=== PATIENT | female | born 1945 | race Caucasian/White ===

== ENCOUNTER → 2019-02-18 11:46 | Outpatient (CLI) | payer MEDICARE, OTHER, SELFPAY ==
--- NOTE | 2019-02-18 | DI.MG.S_ITS ---
BILATERAL DIGITAL SCREENING MAMMOGRAM 3D/2D WITH CAD: 02/18/2019 CLINICAL: Routine screening. Family history of breast cancer. Comparison is made to exams dated: 12/26/2017 mammogram, 11/10/2016 mammogram, 11/02/2015 mammogram, and 10/18/2012 mammogram - [facility]. There are scattered fibroglandular elements in both breasts. Current study was also evaluated with a Computer Aided Detection (CAD) system. No significant masses, calcifications, or other findings are seen in either breast. There has been no significant interval change. IMPRESSION: NEGATIVE There is no mammographic evidence of malignancy. A 1 year screening mammogram is recommended. This exam was interpreted at Station ID: [id number]. NOTE: For mammograms, a report in lay terms will be sent to the patient. Approximately 15% of breast malignancies will not be visualized mammographically. In the management of a palpable breast mass, a negative mammogram must not discourage biopsy of a clinically suspicious lesion. Electronically Signed By: Grayson garnett/cassandra:02/18/2019 12:55:17 letter sent: Normal Exam ACR BI-RADS Category 1: Negative [id number]
== END ==
PROVIDERS: Family Provider Family Medicine; PCP Family Medicine; Visit Provider Family Medicine
DX: Z12.31 Encounter for screening mammogram for malignant neoplasm of breast (principal); Z80.3 Family history of malignant neoplasm of breast
CPT/HCPCS: 77063; 77067

== ENCOUNTER → 2019-05-28 11:20 | Outpatient (CLI) | payer MEDICARE, OTHER, SELFPAY ==
--- NOTE | 2019-05-28 | DI.RAD.S_ITS ---
PROCEDURE: XR CHEST 2V INDICATIONS: COUGH TECHNIQUE: 2 views of the chest were acquired. COMPARISON: [facility], , CHEST 2 VIEW, 09/01/2015, 10:53. FINDINGS: Surgical changes and devices: None. Lungs and pleura: Lungs are clear. No pleural effusions or pneumothorax. Mediastinum: Mediastinal contours are normal. Heart size is normal. Bones and chest wall: No suspicious bony abnormalities. Soft tissues appear unremarkable. IMPRESSION: Normal for age, source of current cough symptoms is not seen. Dictated by: Tad Rowland M.D. on 05/28/2019 at 11:46 Approved by: Tad Rowland M.D. on 05/28/2019 at 11:47
== END ==
PROVIDERS: Visit Provider Student in an Organized Health Care Education/Training Program
DX: R05 Cough (principal)
CPT/HCPCS: 71046

== ENCOUNTER → 2019-06-07 12:40 | Outpatient (CLI) | payer MEDICARE, OTHER, SELFPAY ==
--- NOTE | 2019-06-14 16:07 | P.PFT.S_ITS ---
Pulmonary Function Test Referral & Results Date Patient Seen: 06/07/19 Requesting provider: Britany Ohara Results: The spirometry demonstrates an FVC of 2.31 L which is 67% of predicted. The FEV1 was measured at 1.61 L which is 62% of predicted. The FEV1/FVC ratio was 70 which is 92% of predicted. Following the administration of bronchodilator there was a 17% improvement in FEV1 and a 70% improvement in FEF 25-75%. Lung volumes show an SVC of 1.81 L which is 55% of predicted. The diffusing capacity was measured at 17.37 which is 56% of predicted. No hemoglobin value was provided, so no correction for potential anemia could be made, if appropriate. The maximum voluntary ventilation was reduced Interpretation: This study demonstrates moderately severe obstructive lung disease based on reduction FEV1. There is evidence of benefit following bronchodilator administration particular in small airway flow based on improvement in FEF 25- 75% There appears to be restrictive lung disease present as well based on reduction SVC. Patient refused plethysmography however. Diffusing capacity is significantly reduced suggesting disease at the capillary alveolar level as well Clinical correlation suggested
== END ==
PROVIDERS: PCP Student in an Organized Health Care Education/Training Program; Visit Provider Student in an Organized Health Care Education/Training Program
DX: R05 Cough (principal); J41.0 Simple chronic bronchitis
CPT/HCPCS: 94060; 94729

== ENCOUNTER → 2019-07-18 14:42 | Outpatient (CLI) | payer MEDICARE, OTHER, SELFPAY ==
--- NOTE | 2019-07-18 | DI.CT.S_ITS ---
PROCEDURE: CT CHEST WO CON INDICATIONS: COUGH TECHNIQUE: Noncontrast 5 mm thick sections acquired from the pulmonary apices to the posterior costophrenic angles. 1 mm lung window, 5 mm thick coronal and sagittal and 7 mm axial MIP reformats were then acquired. For radiation dose reduction, the following was used: automated exposure control, adjustment of mA and/or kV according to patient size. COMPARISON: [facility], , CHEST 2 VIEW, 09/01/2015, 10:53. [facility], , XR CHEST 2V, 05/28/2019, 11:33. FINDINGS: Image quality: Excellent. Lungs and pleura: There is a 3 mm in the right upper lobe (series 3 image 140) and a 3 mm nodule in the left lower lobe (series 3 image 250). No acute air space opacities. No pleural effusions or pneumothorax. Central and peripheral airways are patent and normal in caliber. Mediastinum: Heart size is normal. No pericardial effusion. Mildly enlarged precarinal lymph nodes measure up to 1.2 cm. Thoracic aorta and central pulmonary arteries are normal in size. Esophagus is normal in caliber. Small hiatal hernia. Bones and chest wall: No suspicious bony lesions. No vertebral body compression fractures. No axillary or supraclavicular adenopathy by size criteria. Thyroid gland is normal. Abdomen: Visualized upper abdominal solid organs and bowel loops appear normal in the absence of contrast. IMPRESSION: 1. A couple of subcentimeter lung nodules, one in the right upper lobe and one in the left lower lobe. Please see enclosed followup recommendation. 2. Mildly enlarged mediastinal lymph nodes, which are nonspecific. Fleischner Society criteria for SOLID lung nodule followup. Nodule size (mm)Low-risk patientHigh-risk patient?4No follow-up neededFollow-up at 12 mo; if no change, no further follow-up>[id number]-kk CT at 12 mo; if no change, no further follow-up needed.Initial follow-up CT at 6-12 mo, then 18-24 mo if no change. >6-8Initial follow-up CT at 6-12 mo, then 18-24 mo if no change. Initial follow-up CT at 3-6 mo, then 9-12 mo and 24 mo if no change. >8Follow-up CT at 3, 9, 24 mo. Or PET and/or biopsy.Same as for low-risk pts. Fleischner Society criteria for SUB-SOLID lung nodule followup. Solitary pure ground-glass nodules5 mm or lessNo followup needed. >5 mm3 mo follow-up CT to confirm persistence. Then annual CT for 3 years. Part-solid nodules3 mo follow-up CT to confirm persistence. If persistent with solid component <5 mm, annual CT for at least 3 years. If solid component is 5 mm or more, biopsy or surgical resection. Consider PET-CT for lesions > 10 mm. Multiple sub-solid nodulesPure ground glass nodules [address] at 2 and 4 years. Pure ground glass nodules >5 mm without dominant lesion. [address] to confirm persistence, then annual followup CT for at least 3 years. Dominant nodule(s) with part-solid or solid component. [address] to confirm persistence. If persistent, consider biopsy or surgical resection, avila if lesions have >5 mm solid component. Dictated by: Alfredito Vázquez M.D. on 07/18/2019 at 19:07 Approved by: Alfredito Vázquez M.D. on 07/18/2019 at 19:29
== END ==
PROVIDERS: PCP Student in an Organized Health Care Education/Training Program
DX: R05 Cough (principal); R91.8 Other nonspecific abnormal finding of lung field; R59.0 Localized enlarged lymph nodes; K44.9 Diaphragmatic hernia without obstruction or gangrene
CPT/HCPCS: 71250

== ENCOUNTER 2019-10-27 22:38 | Emergency (ER) | payer MEDICARE, OTHER, SELFPAY ==
--- NOTE | 2019-10-27 22:42 | ED_ITS ---
HPI - Weakness General Chief complaint: Nausea/Vomiting/Diarrhea Stated complaint: feeling really shakey Time Seen by Provider: 10/27/19 22:41 Source: patient Mode of arrival: Ambulatory Limitations: no limitations History of Present Illness HPI Narrative: 74-year-old female nonsmoker with history of anxiety and chronic alcohol abuse presents with a chief complaint of a few days of feeling that shaky and anxious with multiple episodes of loose stools. She denies any recent antibiotics, international travel or bad food. She denies any blood in her stool. She has had no chest pain or shortness of breath. She denies any fever or chills. She denies dysuria, frequency or urgency. She does state that in the past few weeks she has been cutting down her chronic alcohol use which is normally 3 glasses of wine daily. Additionally, she stopped taking her Valium which she had been taking for many years daily. She denies any history of alcohol withdrawal. MD Complaint: generalized weakness and lack of energy Onset (ago): day(s) Duration: constant Location: generalized Severity: mild Exacerbating factors: none Associated symptoms: other Related Data Home Medications Medication Instructions Recorded Confirmed DIAZEPAM (Valium) 5 mg PO PRN #0 06/19/09 Previous Rx's Medication Instructions Recorded lorazepam [Ativan] See Rx Instructions .ROUTE 10/28/19 .COMPLEX PRN #19 tab Allergies Allergy/AdvReac Type Severity Reaction Status Date / Time codeine Allergy Verified 10/27/19 23:56 Review of Systems Constitutional Constitutional: Denies chills, Denies fatigue, Denies fever(s), Denies frequent falls, Denies lethargy and Reports weakness Eyes Eyes: Denies change in vision, Denies eye discharge, Denies irritation and Denies loss of vision ENT Ears, Nose, Mouth, and Throat: Denies change in voice, Denies dizziness, Denies neck pain, Denies sore throat and Denies throat swelling Cardiovascular Cardiovascular: Denies chest pain, Denies irregular heart rhythm, Denies lightheadedness, Denies palpitations, Denies dyspnea, Denies dyspnea on exertion and Denies orthopnea Respiratory Respiratory: Denies cough, Denies dyspnea, Denies dyspnea on exertion and Denies wheezing Gastrointestinal Gastrointestinal: Denies abdominal pain, Denies change in bowel habits, Reports diarrhea, Denies nausea and Denies vomiting Genitourinary Genitourinary: Denies hematuria, Denies flank pain, Denies urinary incontinence and Denies urinary urgency Musculoskeletal Musculoskeletal: Denies back pain, Denies muscle weakness, Denies neck pain, Denies numbness and Denies tingling Integumentary/Breasts Skin/Breast: Denies pruritus, Denies erythema, Denies rash and Denies wounds Neurologic Neurologic: Denies behavioral changes, Denies confusion, Denies dizziness, Denies frequent falls, Denies loss of vision, Denies numbness, Denies tingling, Reports tremor(s) and Reports weakness Psychiatric Psychiatric: Denies anxiety, Denies behavioral changes, Denies confusion, Denies depression, Denies homicidal ideation and Denies suicidal ideation Endocrine Endocrine: Denies fatigue, Denies flushing and Denies palpitations Hematologic/Lymphatic Hematologic/Lymphatic: Denies easy bruising Allergic/Immunologic Allergic/Immunologic: Denies urticaria, Denies throat swelling and Denies wheezing Patient History Social History Smoking Status: Never smoker Smoking Status: Never smoker alcohol intake frequency: 3 or more drinks per day Exam Narrative Exam Narrative: GENERAL: [74] year old patient appears stated age. Well-n ourished, well-developed patient, in mild distress. Anxious, agitated and a bit tremulous HEAD: Atraumatic. Normocephalic. EYES: Pupils equal round and reactive. Extraocular motions intact. No scleral icterus. No injection or drainage. ENT: Nose without bleeding, purulent drainage. Throat without erythema, tonsillar hypertrophy or exudate. Airway patent. NECK: Trachea midline. Non tender CARDIOVASCULAR: Regular rate and rhythm without murmurs, gallops, or rubs. RESPIRATORY: Clear to auscultation. Breath sounds equal bilaterally. No wheezes, rales, or rhonchi. GASTROINTESTINAL: Abdomen soft, non-tender, nondistended. EXTREMITIES: No edema or joint tenderness. BACK: Nontender without deformity or crepitance. No flank tenderness. NEURO: AOx3. SKIN: No rash or erythema of visible areas Initial Vital Signs Initial Vital Signs: Vital Signs Temperature 98.2 F 10/27/19 22:47 Pulse Rate 80 10/27/19 22:47 Respiratory Rate 18 10/27/19 22:47 Blood Pressure 191/85 H 10/27/19 22:47 Pulse Oximetry 100 01/05/20 22:47 Course Orders Ordered: ED Orders 10/27/19 22:53 Complete Blood Count AUTO DIFF Stat Comprehensive Metabolic Panel Stat Ethanol (ETOH) Stat Prothrombin Time INR Stat 10/28/19 01:11 GI Panel (Film Array) Stat Discontinued Medications Sodium Chloride (Normal Saline 0.9%) 1,000 mls @ 1,000 mls/hr IV BOLUS ONE Stop: 10/27/19 23:53 Last Infusion: 10/28/19 00:23 Dose: 0 mls/hr Documented by: Admin: 10/27/19 23:09 Dose: 1,000 mls/hr Documented by: SARWAT Lorazepam (Ativan) 1 mg IV NOW ONE Stop: 10/27/19 23:26 Last Admin: 10/28/19 00:08 Dose: 1 mg Documented by: SARWAT Lorazepam (Ativan) 1 mg PO NOW ONE Stop: 10/28/19 00:56 Last Admin: 10/28/19 01:00 Dose: 1 mg Documented by: SUZANNA Ondansetron HCl (Zofran) 4 mg IV NOW ONE Stop: 10/27/19 22:55 Last Admin: 10/28/19 00:23 Dose: Not Given Documented by: SARWAT Thiamine HCl (Vitamin B-1) 100 mg IV NOW ONE Stop: 10/27/19 22:55 Last Admin: 10/27/19 23:10 Dose: 100 mg Documented by: SARWAT Vital Signs Vital signs: Vital Signs - 8 hr 10/27/19 22:47 10/27/19 23:38 10/28/19 01:19 Temperature 98.2 F 98.0 F Pulse Rate 80 77 Respiratory Rate 18 20 Blood Pressure 191/85 H 145/62 H Blood Pressure [Left Arm] 160/71 H Pulse Oximetry 100 97 MDM - Weakness Lab Data Result diagrams: 10/27/19 22:53 10/27/19 22:53 Labs: Lab Results 10/27/19 10/27/19 10/27/19 Range/Units 22:53 22:53 22:53 WBC 5.8 (4.5-11.0) X10^3/uL RBC 4.60 (4.0-5.2) X10^6/uL Hgb 13.4 (12.0-16.0) g/dL Hct 39.6 (36-46) % MCV 86.0 (80-100) fL MCH 29.1 (26-34) PG MCHC 33.8 (30-36) % RDW 12.7 (11.6-14.8) % Plt Count 158 (150-400) X10^3/uL Neut % (Auto) 47.6 L (50-75) % Lymph % (Auto) 40.1 H (25-40) % Stearns % (Auto) 9.5 (3-14) % Eos % (Auto) 1.9 L (2-4) % Baso % (Auto) 0.9 (0-2) % Neut # (Auto) 2800 (1422-4535) /uL Lymph # (Auto) 2300 (0567-0249) /uL Stearns # (Auto) 600 (0-900) /uL Eos # (Auto) 100 (0-450) /uL Baso # (Auto) 0 (0-100) /uL PT 10.7 (10.1-12.7) SECONDS INR 0.9 (0.9-1.3) Sodium (137-145) mmol/L Potassium (3.4-5.1) mmol/L Chloride (98-107) mmol/L Carbon Dioxide (22-32) mmol/L BUN (7-17) mg/dL Creatinine (0.52-1.04) mg/dL Estimated GFR (>60) mL/min BUN/Creatinine Ratio (6-22) Glucose (80-110) mg/dL Calcium (8.4-10.2) mg/dL Total Bilirubin (0.2-1.3) mg/dL AST (14-36) IU/L ALT (<35) IU/L Alkaline Phosphatase (38-126) U/L Total Protein (6.3-8.2) g/dL Albumin (3.5-5.0) g/dL Globulin (1.7-4.1) g/dL Albumin/Globulin Ratio (1.0-2.8) Stl C. cayetanensis PCR (Not Detect) Stool Rotavirus (PCR) (Not Detect) Stool Adenovirus (PCR) (Not Detect) Stool Astrovirus (PCR) (Not Detect) Stool Cryptosporidium PCR (Not Detect) Stl E.coli Shiga Tox PCR (Not Detect) St Sh/Enteroin Ecoli PCR (Not Detect) Stool E coli O157 PCR Stl Enterotoxigenic E PCR (Not Detect) Stool EPEC (PCR) (Not Detect) Stl E. histolytica PCR (Not Detect) Stool Giardia Lamblia PCR (Not Detect) Stool Sapovirus (PCR) (Not Detect) Stl P. shigelloides PCR (Not Detect) St Y.enterocolitica PCR (Not Detect) Stool Vibrio (PCR) (Not Detect) Stl Vibrio cholerae PCR (Not Detect) Stl Enteroaggr Ecoli PCR (Not Detect) Stl Norovirus GI/GII PCR (Not Detect) Ethyl Alcohol < 10 ( - 10) mg/dL Campylobacter (PCR) (Not Detect) C. difficile Tox (PCR) (Not Detect) Salmonella (PCR) (Not Detect) 10/27/19 10/27/19 Range/Units 22:53 23:22 WBC (4.5-11.0) X10^3/uL RBC (4.0-5.2) X10^6/uL Hgb (12.0-16.0) g/dL Hct (36-46) % MCV (80-100) fL MCH (26-34) PG MCHC (30-36) % RDW (11.6-14.8) % Plt Count (150-400) X10^3/uL Neut % (Auto) (50-75) % Lymph % (Auto) (25-40) % Stearns % (Auto) (3-14) % Eos % (Auto) (2-4) % Baso % (Auto) (0-2) % Neut # (Auto) (0763-5831) /uL Lymph # (Auto) (9262-1526) /uL Stearns # (Auto) (0-900) /uL Eos # (Auto) (0-450) /uL Baso # (Auto) (0-100) /uL PT (10.1-12.7) SECONDS INR (0.9-1.3) Sodium 137 (137-145) mmol/L Potassium 3.4 (3.4-5.1) mmol/L Chloride 100 (98-107) mmol/L Carbon Dioxide 25 (22-32) mmol/L BUN 10 (7-17) mg/dL Creatinine 1.00 (0.52-1.04) mg/dL Estimated GFR 53.9 L (>60) mL/min BUN/Creatinine Ratio 10.0 (6-22) Glucose 123 H (80-110) mg/dL Calcium 9.4 (8.4-10.2) mg/dL Total Bilirubin 0.3 (0.2-1.3) mg/dL AST 34 (14-36) IU/L ALT 35 H (<35) IU/L Alkaline Phosphatase 93 (38-126) U/L Total Protein 7.5 (6.3-8.2) g/dL Albumin 4.8 (3.5-5.0) g/dL Globulin 2.7 (1.7-4.1) g/dL Albumin/Globulin Ratio 1.8 (1.0-2.8) Stl C. cayetanensis PCR Not detected (Not Detect) Stool Rotavirus (PCR) Not detected (Not Detect) Stool Adenovirus (PCR) Not detected (Not Detect) Stool Astrovirus (PCR) Not detected (Not Detect) Stool Cryptosporidium PCR Not detected (Not Detect) Stl E.coli Shiga Tox PCR Not detected (Not Detect) St Sh/Enteroin Ecoli PCR Not detected (Not Detect) Stool E coli O157 PCR Not Reportable Stl Enterotoxigenic E PCR Not detected (Not Detect) Stool EPEC (PCR) Not detected (Not Detect) Stl E. histolytica PCR Not detected (Not Detect) Stool Giardia Lamblia PCR Not detected (Not Detect) Stool Sapovirus (PCR) Not detected (Not Detect) Stl P. shigelloides PCR Not detected (Not Detect) St Y.enterocolitica PCR Not detected (Not Detect) Stool Vibrio (PCR) Not detected (Not Detect) Stl Vibrio cholerae PCR Not detected (Not Detect) Stl Enteroaggr Ecoli PCR Not detected (Not Detect) Stl Norovirus GI/GII PCR Not detected (Not Detect) Ethyl Alcohol ( - 10) mg/dL Campylobacter (PCR) Not detected (Not Detect) C. difficile Tox (PCR) Not detected (Not Detect) Salmonella (PCR) Not detected (Not Detect) Point of Care Testing Glucose POC 101 MDM Narrative Medical decision making narrative: 74-year-old female presents with chief complaint of multiple days of feeling a bit shaky and anxious with multiple episodes of diarrhea. She has had no fever chills and denies any blood in her stool. Her exam and lab work is very reassuring. Patient states that within the past few weeks she decided to quit taking her Valium and cut down on her chronic alcohol abuse on her own without the help with her physician. She was given Ativan soon after her history and physical and had a near immediate and complete improvement of her symptoms. Extensive discussion with the patient regarding her evaluation and likely diagnosis. She has been given return preca utions and had her questions answered to her apparent satisfaction. She will call her doctor's office tomorrow for close follow-up and return for worsening or persistent symptoms Discharge Plan Departure Patient Disposition: Home Clinical Impression: Benzodiazepine misuse Diarrhea Qualifiers: Diarrhea type: unspecified type Qualified Code(s): R19.7 - Diarrhea, unspecified Discharge Date/Time: 10/28/19 01:10 Instructions: Diarrhea Activity Restrictions/Additional Instructions: *You have been diagnosed with [diarrhea, anxiety, likely at least partly a consequence of self tapering benzodiazepines and alcohol] *What to do: *Take medications as directed: Prescription transmitted to [facility] at your request *Follow up with your primary care provider in 2-3 days, call for an appointment. Let them know you were seen in the Emergency Department and that we ask that you be seen in follow up *Return to ER if you should have any new, worsening or concerning symptoms Prescriptions: New lorazepam [Ativan] 1 mg tablet See Rx Instructions .ROUTE .COMPLEX PRN (Reason: alcohol withdrawal) Qty: 19 RF: 0 No Action DIAZEPAM (Valium) 5 mg PO PRN Qty: 0 RF: 0 Referrals: Britany Ohara MD [Primary Care Provider] -
[2019-10-27 22:47] VITALS: BP 191/85; PULSE 80; RESP 18; TEMP 36.8; O2SAT 100; BMI 22.1
[2019-10-27 23:09] LABS: INR 0.9 (0.9-1.3); Prothrombin Time 10.7 SECONDS (10.1-12.7)
[2019-10-27] MEDS: SODIUM CHLORIDE 0.9% 1,000 ML 1000 ML IV (23:09)
[2019-10-27] MEDS: THIAMINE 200 MG/2 ML VIAL 100 MG IV (23:10)
[2019-10-27 23:14] LABS: Add Manual Diff / Slide Review NO; Basophils Absolute Auto 0 /uL (0-100); Basophils Percent Auto 0.9 % (0-2); Eosinophils Absolute Auto 100 /uL (0-450); Eosinophils Percent Auto 1.9 % (2-4); Hematocrit 39.6 % (36-46); Hemoglobin 13.4 g/dL (12.0-16.0); Lymphocytes Absolute Auto 2300 /uL (1100-4500); Lymphocytes Percent Auto 40.1 % (25-40); Mean Corpuscular HGB Conc 33.8 % (30-36); Mean Corpuscular Hemoglobin 29.1 PG (26-34); Monocytes Absolute Auto 600 /uL (0-900); Monocytes Percent Auto 9.5 % (3-14); Neutrophils Absolute Auto 2800 /uL (1500-7000); Neutrophils Percent Auto 47.6 % (50-75); Platelet Count 158 X10^3/uL (150-400); Red Cell Distribution Width 12.7 % (11.6-14.8); White Blood Cell Count 5.8 X10^3/uL (4.5-11.0)
[2019-10-27 23:15] LABS: Ethanol (ETOH) < 10 mg/dL
[2019-10-27 23:16] LABS: Alanine Aminotransferase 35 IU/L (<35); Albumin 4.8 g/dL (3.5-5.0); Albumin Globulin Ratio 1.8 (1.0-2.8); Alkaline Phosphatase 93 U/L (38-126); Aspartate Aminotransferase 34 IU/L (14-36); Bilirubin Total 0.3 mg/dL (0.2-1.3); Blood Urea Nitrogen 10 mg/dL (7-17); Calcium 9.4 mg/dL (8.4-10.2); Carbon Dioxide 25 mmol/L (22-32); Chloride 100 mmol/L (98-107); Estimated Glomerular Filt Rate 53.9 mL/min (>60); Globulin 2.7 g/dL (1.7-4.1); Glucose 123 mg/dL (80-110); HEMOLYSIS 20 (0-50); Potassium 3.4 mmol/L (3.4-5.1); Sodium 137 mmol/L (137-145); Total Protein 7.5 g/dL (6.3-8.2)
[2019-10-27 23:38] VITALS: BP 160/71
[2019-10-28] MEDS: LORazepam 2 MG/ML INJ 1 MG IV (00:08)
[2019-10-28] MEDS: LORazepam 0.5 MG TABLET 1 MG PO (01:00)
[2019-10-28 01:19] VITALS: BP 145/62; PULSE 77; RESP 20; TEMP 36.7; O2SAT 97
[2019-10-28 02:59] LABS: Campylobacter Not Detected (Not Detect); Clostridium difficile toxin AB Not Detected (Not Detect); Enteroaggregative E.coli Not Detected (Not Detect); Enteropathogenic E.coli Not Detected (Not Detect); Enterotoxigenic E.coli It/st Not Detected (Not Detect); Plesiomonsa shigelloides Not Detected (Not Detect); Salmonella Not Detected (Not Detect); Shiga-like toxin-prod E.coli Not Detected (Not Detect); Vibrio Not Detected (Not Detect); Vibrio cholerae Not Detected (Not Detect); Yersinia enterocolitica Not Detected (Not Detect)
[2019-10-28 03:00] LABS: Adenovirus F 40/41 Not Detected (Not Detect); Astrovirus Not Detected (Not Detect); Cryptosporidium Not Detected (Not Detect); Cyclospora cayetanensis Not Detected (Not Detect); Entamoeba histolytica Not Detected (Not Detect); Giardia lamblia Not Detected (Not Detect); Norovirus GI/GII Not Detected (Not Detect); Rotavirus A Not Detected (Not Detect); Sapovirus Not Detected (Not Detect); Shigella/Enteroinvasive E.coli Not Detected (Not Detect)
== END 2019-10-28 01:10 | disposition home or self-care (01) ==
PROVIDERS: Emergency Provider Emergency Medicine; PCP Student in an Organized Health Care Education/Training Program
DX: F41.9 Anxiety disorder, unspecified (principal); R19.7 Diarrhea, unspecified; F10.20 Alcohol dependence, uncomplicated; F19.20 Other psychoactive substance dependence, uncomplicated
CPT/HCPCS: 36415; 80053; 80320; 85025; 85610; 87507; 96361; 96374; 96375; 99284; J2060; J2405

== ENCOUNTER 2019-10-29 15:30 | Outpatient (RCR) | payer MEDICARE, OTHER, SELFPAY ==
--- NOTE | 2019-08-08 10:48 | ST.OPIE ---
Visit Care Team Role Provider Type Britany Ohara MD Primary Care Provider Physician Specialty: Family Practice Address: [address] [place] [address], [facility], [place], [address] Email: [email or web address] Matthew Moran MD Attending Provider Physician Specialty: Ear, Nose, Throat Address: [address] [place] [address], [id number] Email: [email or web address] Speech-Language Pathology Initial Evaluation PREVENTION SPECIALIST Voice Resonance Evaluation Start: 08/06/19 16:33 Freq: Status: Active Protocol: Document 08/06/19 16:34 KOLTON (Rec: 08/06/19 17:24 KOLTON [id number]) Voice and Resonance Assessment Session Time Visit Start Time 10:30 Visit Stop Time 11:33 Total Visit Minutes 63 Visit Information Visit Number Initial Evaluation Plan of Care Dates 08/06/19 - 11/06/19 Next Note Type Next Note Type Treatment Note Referral Referring Physician Dr. Moran Reason for Referral Chronic cough, VF dysfunction, supraglottic/laryngeal muscle tension Setting Setting Outpatient Care Patient History General Information This 74-yr-old female was seen by Dr. Moran on 07/24/[address] Britany Ohara d/t complaints of chronic cough, mucus in throat, and intermittent dysphonia. Symptoms often awaken the pt at night. The pt reported start of symptoms 7 mos ago after an episode of bronchitis. She was seen by pumonology for Pulmonary Function Test, which revealed moderately severe obstructive lung diseased based on reduction of FEV1; restrictive lung disease based on reduction SVC; and significantly reduced diffusing capacity suggesting disease at the capillary alveolar level. There was evidence of benefit following bronchodilator. The pt also has experienced one significant episode of heartburn, after which she took Zantac briefly. She has discontinued bronchodilator and Zantac. The pt has a history of severe anxiety, for which she takes Diazepam/Valium 5mg 2x/day as needed, which she states takes the edge off the urge to cough and allows me to sleep better. The pt denies dysphagia. Hearing Hearing Level Normal Vision Vision Status Not Impaired [place] Langauge Language(s) Spoken in the Home Amharic Previous Therapy Previous Speech-Language Therapy No Subjective Subjective The pt arrived on time and provided case history supplemental to medical records. She initially denied GERD/LPR as she has only ever experienced heartburn once, although it was severe and prompted her to consult her doctor. She was recommended by Dr. Moran for allergy testing in [place]; however, the pt cancelled the appt as she was not feeling well on the day of the appt and has not rescheduled as she has never had allergies. - Laryngeal Performance Voice Handicap Index VHI Comments Provided to pt to be completed and returned at next appt. Muscle Tension Assessment Muscle Tension Assessment Jaw,Neck,Shoulders,Face,Lips Muscle Tension Assessment Comments Frequent mod tension. Pt able to relax volitionally but does not sustain. Breath Support Breath Support At Rest Mixed Breath Support Conversation Mixed Breath Support Conversation Comment Significant body tension observed, contributing to clavicular breathing Resonance Nasal Resonance Normal Other Observations Inadequate Breath Support Findings Findings Moderate-Severe Impairment Observations The pt exhibited significant anxiety during today's session, as verbally acknowledged by pt and demonstrated by frequent interruptions expressing a variety of concerns. Therefore, today's session targeted building rapport with the pt, performing subjective assessments, and providing education particularly around LPR/GERD and their potential effects on vocal quality, globus sensation, and chronic cough. Formal voice evaluation will take place at next session. Voice/Resonance Assessment Assessment The pt exhibits moderately to severely impaired vocal quality secondary to muscle tension and likely impacted by chronic cough. Vocal quality is characterized by moderate- severe strain and breathiness and mild roughness. LPR/GERD is suspected, as the pt endorsed 4 of 8 symptoms (50%). Allergies are also suspected as possible contributors to pt's sensation of PND. These conditions and history of anxiety are likely contributors to the pt's symptoms. Recommendation was made for allergy testing. The pt was in agreement with this assessment and recommendation after receiving education. She expressed preference of allergy testing with Dr. Moran. Prognosis Rehabilitation Potential Good - Recommendations Treatment Recommended Yes Treatment Frequency/Duration 1x/wk for 2-3 months Placement Recommendation Home Therapy Recommendations Relaxation techniques to reduce laryngeal tension and improve breath support for speech and voice; Compensatory strategies to reduce cough and its effects; Vocal exercises to improve quality of voice; Ongoing GERD/LPR education. Short Term Goals 1. The pt will demonstrate understanding of relaxation methods by performing diaphragmatic breathing in structured tasks and neck/ shoulder stretches with 90% accuracy. 2. The pt will perform easy onset cough/hard swallow strategies with min prompts in 75% of opportunities to reduce cough and its impact on VFs. 3. The pt will verbalize understanding of subsystems of voice with 90% accuracy to establish foundation for reducing laryngeal tension and improving vocal quality. 4. The pt will verbalize understanding of GERD/LPR education and identify 2 or more modifications to oral intake and/or lifestyle to reduce symptoms. Prison Goals 1. The pt will perform relaxation techniques independently in treatment and home practice with 90% accuracy to reduce laryngeal tension and improve vocal quality, as measured by pt report, performance in tx, and clinician judgment. 2. The pt will perform easy onset cough/hard swallow strategies with independently in 75% of opportunities to reduce cough and its impact on VFs. 3. The pt will produce voicing in structured tasks and spontaneous speech WFL, as measured by VHI and CAPE-V assessment tools, pt report and clinician judgment. PREVENTION SPECIALIST Follow Up 1x/wk for 8 wks; Taper frequency as appropriate. Referrals Referrals ENT, Psychology Voice/Resonance Other Referral Recommend allergy testing by Dr. Moran. Patient/Caregiver Education Patient/Family Education Described results of evaluation,Patient Understanding,Patient Needs More Info
--- NOTE | 2019-08-13 15:10 | ST.OPTN ---
Visit Care Team Role Provider Type Britany Ohara MD Primary Care Provider Physician Address: [address] [place] [address], [address], [place], [address] Matthew Moran MD Attending Provider Physician Address: [address] [place] [address], [id number] [employer] Treatment Note PLANT MECHANIC Treatment Note Start: 08/06/19 16:34 Freq: Status: Active Protocol: Document 08/12/19 16:31 KOLTON (Rec: 08/12/19 16:31 KOLTON [id number]) Speech Pathology Treatment Note Session Time Visit Start Time 14:30 Visit Stop Time 13:20 Total Visit Minutes 50 Visit Information Visit Number 11/01 Plan of Care Dates 08/06/19 - 11/06/19 Insurance Information Medicare Setting Treatment Setting Outpatient Care Visit Type Note Type Treatment Note Next Note Type Next Note Type Treatment Note General Information General Information This 74-yr-old female was seen by Dr. Moran on 07/24/[address] Britany Ohara d/t complaints of chronic cough, mucus in throat , and intermittent dysphonia. Symptoms often awaken the pt at night. The pt reported start of symptoms 7 mos ago after an episode of bronchitis . 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 There was evidence of benefit following bronchodilator. The pt also has experienced one significant episode of heartburn, after which she took Zantac briefly. She has discontinued bronchodilator and Zantac. The pt has a history of severe anxiety, for which she takes Diazepam/Valium 5mg 2x/day as needed, which she states takes the edge off the urge to cough and allows me to sleep better. The pt denies dysphagia. Subjective Observations/Patient Presentation Pt arrived on time. Continued to express and exhibit anxiety RE her symptoms, frequently interrupting the Clinician, but was easily redirected. She reported doing a lot of whispering to protect her voice, She also expressed concern that she was not supposed to cough as per her understanding of this Clinician's discussions with her at last session. In discussions of medication, the pt stated that Dr. Moran had suggested a possible change of medication in place of Valium may be beneficial. A written list of potential side effects of Valium were provided to the pt by this Clinician with recommendation the pt review and discuss medications with her PCP and/ or Psychiatrist. The pt was informed that detailed discussion of medication is outside this Clinician's scope of practice. She verbalized understanding. Chief Complaint(s) Voice Objective Short Term Goals 1. The pt will demonstrate understanding of relaxation methods by performing diaphragmatic breathing in structured tasks and neck/ shoulder stretches with 90% accuracy. 2. The pt will perform easy onset cough/hard swallow strategies with min prompts in 75% of opportunities to reduce cough and its impact on VFs. 3. The pt will verbalize understanding of subsystems of voice with 90% accuracy to establish foundation for reducing laryngeal tension and improving vocal quality. 4. The pt will verbalize understanding of GERD/LPR education and identify 2 or more modifications to oral intake and/or lifestyle to reduce symptoms. Care Home Goals 1. The pt will perform relaxation techniques independently in treatment and home practice with 90% accuracy to reduce laryngeal tension and improve vocal quality, as measured by pt report, performance in tx, and clinician judgement. 2. The pt will perform easy onset cough/hard swallow strategies with independently in 75% of opportunities to reduce cough and its impact on VFs. 3. The pt will produce voicing in structured tasks and spontaneous speech WFL, as measured by VHI and CAPE-V assessment tools, pt report and clinician judgement. Treatment Activities Education was provided to dispel the idea that the pt is not supposed to cough and clarify information from last session, including importance of coughing when needed to maintain airway protection. Educated and trained pt in strategies to reduce VF trauma during cough and throat clearing. These strategies included easy-onset silent cough and supraglottic swallow to soothe laryngeal and/or pharyngeal irritation and reduce need for cough. Instructions were provided orally with demonstration and in writing. The pt returned demonstration of both strategies and verbalized understanding of both the strategies as well as importance of coughing when needed to protect the airway. The pt had questions related to GERD/LPR, which were answered. Continued voice assessment with the following results: MPT = 15.92 sec with instruction of increasing loudenss, which also improved vocal quality. Without such instruction, pt achieved up to 13.9 sec with mixed breathy/ harsh vocal quality. Fundamental Frequency: 231 Hz (WNL) Jitter: 0.30% (WNL) Shimmer: 3.42% (WFL) CAPE-V: Overall Severity 66%, Moderate-Severe; Roughness 32% , Mild; Strain 66%, Moderate- Severe; Pitch WNL; Loudness 59 %, Moderate-Severe. Pt frequently whispers to preserve voice, although vocal quality was noted to improve when pt increased loudness above her normal conversational voiced levels. Voice Handicap Index (VHI): Pt denied all statements with exception of My voice problem upsets me (2 on scale of 4), resulting in an overall score of 118/120 (WNL), Functional Subscale 0/40 (WNL), Physical Subscale 0/40 (WNL), and Emotional Subscale 2/40 (WNL). These scores are surprising considering the pt's quality of voice and her expressed concerns. Due to time constraints, scores were not discussed with the pt in today's session but will be discussed at next session to verify pt's understanding of the task and her responses. Reflux Symptom Index (RSI): Toal Score 13/45 (>13 may be indicative of significant reflux disease) Assessment Patient Response to Treatment Good Rehab Potential Good Impairments Identified Vocal Quality,Vocal Hygiene, Other Additional Impairments Identified Chronic cough Assessment of Improvement Pt presents with moderate- severe dysphonia likely secondary to GERD/LPR and exaccerbated by chronic cough. The pt was responsive to education and training in strategies to reduce cough and /or trauma to VFs with cough and throat clearing. She verbalized understanding of the importance of coughing when necessary to protect the airway and was able to return demonstration of strategies. Needs reinforcement. The pt continues to exhibit significant anxiety, particularly around recommended modifications to diet and lifestyle to reduce effects of GERD/LPR. She stated an intention to purchase a wedge to elevate her torso while sleeping and did express appreciation for education and training provided. Reviewed with Patient Goals,Progress Being Made,Home Exercise Program Patient/Caregiver Understanding Good Plan Treatment Emphasis Next Session Relaxation/breathing techniques; Educate RE subsystems of voice Therapeutic Contents Client Education,Home Exercise Program,Voice Training,Other Additional Areas of Treatment Strategies to reduce chronic cough Provided Patient/Caregiver Instruction Home Exercise Program,Plan of Care,Questions/Concerns Therapy Recommendations Continue with Current Program
--- NOTE | 2019-08-20 16:27 | ST.OPTN ---
Visit Care Team Role Provider Type Britany Ohara MD Primary Care Provider Physician Address: [address] [place] [address], [address], [place], [address] Matthew Moran MD Attending Provider Physician Address: [address] [place] [address], [place], [address] LUMBER STACKER Treatment Note LUMBER STACKER Treatment Note Start: 08/06/19 16:34 Freq: Status: Active Protocol: Document 08/20/19 12:27 KOLTON (Rec: 08/20/19 12:29 KOLTON [id number]) Speech Pathology Treatment Note Session Time Visit Start Time 10:30 Visit Stop Time 11:20 Total Visit Minutes 50 Visit Information Visit Number 12/02 Plan of Care Dates 08/06/19 - 11/06/19 Insurance Information Medicare Setting Treatment Setting Outpatient Care Visit Type Note Type Treatment Note Next Note Type Next Note Type Treatment Note General Information General Information This 74-yr-old female was seen by Dr. Moran on 07/24/[address] Britany Ohara d/t complaints of chronic cough, mucus in throat , and intermittent dysphonia. Symptoms often awaken the pt at night. The pt reported start of symptoms 7 mos ago after an episode of bronchitis . 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 There was evidence of benefit following bronchodilator. The pt also has experienced one significant episode of heartburn, after which she took Zantac briefly. She has discontinued bronchodilator and Zantac. The pt has a history of severe anxiety, for which she takes Diazepam/Valium 5mg 2x/day as needed, which she states takes the edge off the urge to cough and allows me to sleep better. The pt denies dysphagia. Subjective Observations/Patient Presentation Pt arrived on time. She reported having obtained a wedge for her bed on which she is able to comfortably sleep at an approximate 30 degree angle as GERD precaution. She also informed she feels greater benefit from hard swallow vs silent cough approach to diminish chronic cough and negative effects on VFs. She is transitioning from caffienated to decaf coffee and intends to attempt 1-month trial of elimination of alcohol to observe effects, if any, on GERD/LPR symptoms. Chief Complaint(s) Voice Additional Areas of Concern Chronic cough Objective Short Term Goals 1. The pt will demonstrate understanding of relaxation methods by performing diaphragmatic breathing in structured tasks and neck/ shoulder stretches with 90% accuracy. 2. The pt will perform easy onset cough/hard swallow strategies with min prompts in 75% of opportunities to reduce cough and its impact on VFs. 3. The pt will verbalize understanding of subsystems of voice with 90% accuracy to establish foundation for reducing laryngeal tension and improving vocal quality. 4. The pt will verbalize understanding of GERD/LPR education and identify 2 or more modifications to oral intake and/or lifestyle to reduce symptoms. Senior Living Goals 1. The pt will perform relaxation techniques independently in treatment and home practice with 90% accuracy to reduce laryngeal tension and improve vocal quality, as measured by pt report, performance in tx, and clinician judgement. 2. The pt will perform easy onset cough/hard swallow strategies with independently in 75% of opportunities to reduce cough and its impact on VFs. 3. The pt will produce voicing in structured tasks and spontaneous speech WFL, as measured by VHI and CAPE-V assessment tools, pt report and clinician judgement. Treatment Activities Consulted with pt RE progress with GERD/LPR diet and lifestyle modifications. Encouraged pt that she is on the right path for a trial elimination of potential factors. Continued training of alternative cough strategies. The pt performed hard swallow frequently throughout the session. Coughing was observed x3 over the course of the session, which is a significant reduction as compared to previous sessions. Initiated training in diaphragmatic breathing with oral instructions and demonstration. The pt exhibited mixed breathing, greater clavicular than diaphragmatic at onset of instruction. She returned demonstration of diaphragmatic breathing with verbal instruction. Instructed pt to practice at home while lying on her back with book on belly and observe up/down movement of book with breathing. She reported doing guided meditation each night, which involved instructions for slow deep breathing. LUMBER STACKER instructed pt to continue with this daily practice, focusing on diaphragmatic breathing. Pt verbalized understanding and intention. Assessment Patient Response to Treatment Good Rehab Potential Good Impairments Identified Vocal Quality,Vocal Hygiene, Other Additional Impairments Identified Chronic cough Progress Towards Goals Good Progress Assessment of Overall Progress Improving Assessment of Improvement The pt is making good progress with alternative cough strategies, although she expresses impatience with the process. Likewise, she is making progress with diet and lifestyle modifications to minimize GERD/LPR symptoms, also with expressions of disappointment and some frustration at new limitations . However, she is highly motivated to eliminate cough and continues to be open to recommended changes and to the education related to these factors and changes. She was responsive to training in diaphragmatic breathing and agreeable to incorporate it into her daily meditation practice. During training, she exhibited ability to shift from mostly clavicular breathing to mostly diaphragmatic with slow breathing in through nose and out through mouth. Although the pt continued to exhibit high levels of anxiety, she also demonstrated improved awareness of her tendency to interrupt the Clinician and shift topics abruptly. She became less verbose and appeared less anxious, as perceived by this clinician, following deep breathing exercises. Reviewed with Patient Goals,Progress Being Made,Home Exercise Program Patient/Caregiver Understanding Good Plan Treatment Emphasis Next Session Relaxation/breathing techniques; Educate RE subsystems of voice Therapeutic Contents Client Education,Home Exercise Program,Voice Training,Other Additional Areas of Treatment Strategies to reduce chronic cough Provided Patient/Caregiver Instruction Home Exercise Program,Plan of Care,Questions/Concerns Therapy Recommendations Continue with Current Program
--- NOTE | 2019-08-27 15:00 | ST.OPTN ---
Visit Care Team Role Provider Type Britany Ohara MD Primary Care Provider Physician Address: [address] [place] [address], [address], [place], [address] Matthew Moran MD Attending Provider Physician Address: [address] [place] [address], [id number] COUNSELING CASE MANAGER Treatment Note COUNSELING CASE MANAGER Treatment Note Start: 08/06/19 16:34 Freq: Status: Active Protocol: Document 08/27/19 14:44 KOLTON (Rec: 08/27/19 15:00 KOLTON [id number]) Speech Pathology Treatment Note Session Time Visit Start Time 10:30 Visit Stop Time 11:15 Total Visit Minutes 45 Visit Information Visit Number 12/30 Plan of Care Dates 08/06/19 - 11/06/19 Insurance Information Medicare Setting Treatment Setting Outpatient Care Visit Type Note Type Treatment Note Next Note Type Next Note Type Treatment Note General Information General Information This 74-yr-old female was seen by Dr. Moran on 07/24/[address] Britany Ohara d/t complaints of chronic cough, mucus in throat , and intermittent dysphonia. Symptoms often awaken the pt at night. The pt reported start of symptoms 7 mos ago after an episode of bronchitis . 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 There was evidence of benefit following bronchodilator. The pt also has experienced one significant episode of heartburn, after which she took Zantac briefly. She has discontinued bronchodilator and Zantac. The pt has a history of severe anxiety, for which she takes Diazepam/Valium 5mg 2x/day as needed, which she states takes the edge off the urge to cough and allows me to sleep better. The pt denies dysphagia. Subjective Observations/Patient Presentation Pt arrived on time. She reported being unable to sleep with bed wedge and has removed it. She reports frequent difficulty sleeping and continued globus sensation . Chief Complaint(s) Voice Additional Areas of Concern Chronic cough Rehab Expectation/Goals: Patient Goals Eliminate chronic cough; improve vocal quality. Objective Short Term Goals 1. The pt will demonstrate understanding of relaxation methods by performing diaphragmatic breathing in structured tasks and neck/ shoulder stretches with 90% accuracy. 2. The pt will perform easy onset cough/hard swallow strategies with min prompts in 75% of opportunities to reduce cough and its impact on VFs. 3. The pt will verbalize understanding of subsystems of voice with 90% accuracy to establish foundation for reducing laryngeal tension and improving vocal quality. 4. The pt will verbalize understanding of GERD/LPR education and identify 2 or more modifications to oral intake and/or lifestyle to reduce symptoms. Shelter Goals 1. The pt will perform relaxation techniques independently in treatment and home practice with 90% accuracy to reduce laryngeal tension and improve vocal quality, as measured by pt report, performance in tx, and clinician judgement. 2. The pt will perform easy onset cough/hard swallow strategies with independently in 75% of opportunities to reduce cough and its impact on VFs. 3. The pt will produce voicing in structured tasks and spontaneous speech WFL, as measured by VHI and CAPE-V assessment tools, pt report and clinician judgement. Treatment Activities Contined training in neck/ shoulder/laryngeal relaxation techniques. Pt demonstrated ability to perform head and shoulder rolls but required verbal prompts to complete a series of necessary repetitions. During deep breathing, she exhibited greater clavicular than diaphragmatic breathing. Continued training with use of book on belly with pt in supine position, then in standing position with mirror feedback. The pt was reversing diaphragmatic movements with respiration, but with further education and demonstration demonstrated understanding and ability to perform with cognitive effort. Initiated education in subsystems of voice and vocal exercises targeting respiratory control and forward focus sustained productions of /s/ and /m/. Pt performed inhale of 3 sec with exhale of 6 sec with 70% accuracy, with difficulty extending exhale for complete duration. With mod-max cues, the pt performed sustained consonant productions. She exhibited difficulty performing these for specific lengths of time; therefore, task was modified for pt to sustain for as long as possible. When needing correction in form with any of today's tasks, the pt tended to reprimand herself, saying, I'm doing it wrong or I'm not supposed to do that which appeared to increase her anxiety and be counterproductive to the target. Skilled feedback and words of encouragement were provided, as well as modifications of tasks as needed. The pt verbalized understanding but needs reinforcement. Instructions for home practice were provided orally and in writing . Assessment Patient Response to Treatment Good Rehab Potential Good Impairments Identified Vocal Quality,Vocal Hygiene, Other Additional Impairments Identified Chronic cough Progress Towards Goals Good Progress Assessment of Overall Progress Improving Assessment of Improvement The pt is making slow progress toward diaphragmatic breathing goals, with frequent clavicular breathing present. She engaged in small amounts of relaxation techniques but greater number of repetitions is necessary for real benefit. She did benefit from visual feedback (mirror) and verbal prompts (COUNSELING CASE MANAGER tracking time for tasks of specific duration). She was stimulable for exercises targeting breath control, which is critical for moving forward with voice exercises. The pt continues to exhibit high levels of anxiety, negative self-talk/ criticism, and a desire for fast results. She was somewhat receptive to skilled education/feedback, but needs reinforcement. Reviewed with Patient Goals,Progress Being Made,Home Exercise Program Patient/Caregiver Understanding Good Plan Treatment Emphasis Next Session Breath control, relaxation techniques, forward focus phonation Therapeutic Contents Client Education,Home Exercise Program,Voice Training,Other Additional Areas of Treatment Strategies to reduce chronic cough Provided Patient/Caregiver Instruction Home Exercise Program,Plan of Care,Questions/Concerns Therapy Recommendations Continue with Current Program
--- NOTE | 2019-08-27 17:32 | ST.OPTN ---
Visit Care Team Role Provider Type Britany Ohara MD Primary Care Provider Physician Address: [address] [place] [address], [address], [place], [address] Matthew Moran MD Attending Provider Physician Address: [address] [place] [address], [id number] SEAM FELLER Treatment Note SEAM FELLER Treatment Note Start: 08/06/19 16:34 Freq: Status: Active Protocol: Document 08/27/19 14:44 KOLTON (Rec: 08/27/19 15:00 KOLTON [email or web address]) Speech Pathology Treatment Note Session Time Visit Start Time 10:30 Visit Stop Time 11:15 Total Visit Minutes 45 Visit Information Visit Number 12/30 Plan of Care Dates 08/06/19 - 11/06/19 Insurance Information Medicare Setting Treatment Setting Outpatient Care Visit Type Note Type Treatment Note Next Note Type Next Note Type Treatment Note General Information General Information This 74-yr-old female was seen by Dr. Moran on 07/24/[address] Britany Ohara d/t complaints of chronic cough, mucus in throat , and intermittent dysphonia. Symptoms often awaken the pt at night. The pt reported start of symptoms 7 mos ago after an episode of bronchitis . 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 There was evidence of benefit following bronchodilator. The pt also has experienced one significant episode of heartburn, after which she took Zantac briefly. She has discontinued bronchodilator and Zantac. The pt has a history of severe anxiety, for which she takes Diazepam/Valium 5mg 2x/day as needed, which she states takes the edge off the urge to cough and allows me to sleep better. The pt denies dysphagia. Subjective Observations/Patient Presentation Pt arrived on time. She reported being unable to sleep with bed wedge and has removed it. She reports frequent difficulty sleeping and continued globus sensation . Chief Complaint(s) Voice Additional Areas of Concern Chronic cough Rehab Expectation/Goals: Patient Goals Eliminate chronic cough; improve vocal quality. Objective Short Term Goals 1. The pt will demonstrate understanding of relaxation methods by performing diaphragmatic breathing in structured tasks and neck/ shoulder stretches with 90% accuracy. 2. The pt will perform easy onset cough/hard swallow strategies with min prompts in 75% of opportunities to reduce cough and its impact on VFs. 3. The pt will verbalize understanding of subsystems of voice with 90% accuracy to establish foundation for reducing laryngeal tension and improving vocal quality. 4. The pt will verbalize understanding of GERD/LPR education and identify 2 or more modifications to oral intake and/or lifestyle to reduce symptoms. Senior Care Goals 1. The pt will perform relaxation techniques independently in treatment and home practice with 90% accuracy to reduce laryngeal tension and improve vocal quality, as measured by pt report, performance in tx, and clinician judgement. 2. The pt will perform easy onset cough/hard swallow strategies with independently in 75% of opportunities to reduce cough and its impact on VFs. 3. The pt will produce voicing in structured tasks and spontaneous speech WFL, as measured by VHI and CAPE-V assessment tools, pt report and clinician judgement. Treatment Activities Contined training in neck/ shoulder/laryngeal relaxation techniques. Pt demonstrated ability to perform head and shoulder rolls but required verbal prompts to complete a series of necessary repetitions. During deep breathing, she exhibited greater clavicular than diaphragmatic breathing. Continued training with use of book on belly with pt in supine position, then in standing position with mirror feedback. The pt was reversing diaphragmatic movements with respiration, but with further education and demonstration demonstrated understanding and ability to perform with cognitive effort. Initiated education in subsystems of voice and vocal exercises targeting respiratory control and forward focus sustained productions of /s/ and /m/. Pt performed inhale of 3 sec with exhale of 6 sec with 70% accuracy, with difficulty extending exhale for complete duration. With mod-max cues, the pt performed sustained consonant productions. She exhibited difficulty performing these for specific lengths of time; therefore, task was modified for pt to sustain for as long as possible. When needing correction in form with any of today's tasks, the pt tended to reprimand herself, saying, I'm doing it wrong or I'm not supposed to do that which appeared to increase her anxiety and be counterproductive to the target. Skilled feedback and words of encouragement were provided, as well as modifications of tasks as needed. The pt verbalized understanding but needs reinforcement. Instructions for home practice were provided orally and in writing . Assessment Patient Response to Treatment Good Rehab Potential Good Impairments Identified Vocal Quality,Vocal Hygiene, Other Additional Impairments Identified Chronic cough Progress Towards Goals Good Progress Assessment of Overall Progress Improving Assessment of Improvement The pt is making slow progress toward diaphragmatic breathing goals, with frequent clavicular breathing present. She engaged in small amounts of relaxation techniques but greater number of repetitions is necessary for real benefit. She did benefit from visual feedback (mirror) and verbal prompts (SEAM FELLER tracking time for tasks of specific duration). She was stimulable for exercises targeting breath control, which is critical for moving forward with voice exercises. The pt continues to exhibit high levels of anxiety, negative self-talk/ criticism, and a desire for fast results. She was somewhat receptive to skilled education/feedback, but needs reinforcement. Reviewed with Patient Goals,Progress Being Made,Home Exercise Program Patient/Caregiver Understanding Good Plan Treatment Emphasis Next Session Breath control, relaxation techniques, forward focus phonation Therapeutic Contents Client Education,Home Exercise Program,Voice Training,Other Additional Areas of Treatment Strategies to reduce chronic cough Provided Patient/Caregiver Instruction Home Exercise Program,Plan of Care,Questions/Concerns Therapy Recommendations Continue with Current Program
--- NOTE | 2019-09-10 16:41 | ST.OPTN ---
Visit Care Team Role Provider Type Britany Ohara MD Primary Care Provider Physician Address: [address] [place] [address], [address], [place], [address] Matthew Moran MD Attending Provider Physician Address: [address] [place] [address], [id number] BOAT LOADER HELPER Treatment Note BOAT LOADER HELPER Treatment Note Start: 08/06/19 16:34 Freq: Status: Active Protocol: Document 09/10/19 16:05 KOLTON (Rec: 09/10/19 16:37 KOLTON [email or web address]) Speech Pathology Treatment Note Session Time Visit Start Time 10:30 Visit Stop Time 11:15 Total Visit Minutes 45 Visit Information Visit Number 01/30 Plan of Care Dates 08/06/19 - 11/06/19 Insurance Information Medicare Setting Treatment Setting Outpatient Care Visit Type Note Type Treatment Note Next Note Type Next Note Type Treatment Note General Information General Information This 74-yr-old female was seen by Dr. Moran on 07/24/[address] Britany Ohara d/t complaints of chronic cough, mucus in throat , and intermittent dysphonia. Symptoms often awaken the pt at night. The pt reported start of symptoms 7 mos ago after an episode of bronchitis . 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 There was evidence of benefit following bronchodilator. The pt also has experienced one significant episode of heartburn, after which she took Zantac briefly. She has discontinued bronchodilator and Zantac. The pt has a history of severe anxiety, for which she takes Diazepam/Valium 5mg 2x/day as needed, which she states takes the edge off the urge to cough and allows me to sleep better. The pt denies dysphagia. Subjective Observations/Patient Presentation Pt arrived on time. No new complaints. She apologized for missing last week's session but stated she was not feeling well that day d/t excessive mucous from what she feels is PND, and also has been grieving the loss of a pet. Chief Complaint(s) Voice Additional Areas of Concern Chronic cough Rehab Expectation/Goals: Patient Goals Eliminate chronic cough; improve vocal quality. Objective Short Term Goals 1. The pt will demonstrate understanding of relaxation methods by performing diaphragmatic breathing in structured tasks and neck/ shoulder stretches with 90% accuracy. 2. The pt will perform easy onset cough/hard swallow strategies with min prompts in 75% of opportunities to reduce cough and its impact on VFs. 3. The pt will verbalize understanding of subsystems of voice with 90% accuracy to establish foundation for reducing laryngeal tension and improving vocal quality. 4. The pt will verbalize understanding of GERD/LPR education and identify 2 or more modifications to oral intake and/or lifestyle to reduce symptoms. Longterm Goals 1. The pt will perform relaxation techniques independently in treatment and home practice with 90% accuracy to reduce laryngeal tension and improve vocal quality, as measured by pt report, performance in tx, and clinician judgement. 2. The pt will perform easy onset cough/hard swallow strategies with independently in 75% of opportunities to reduce cough and its impact on VFs. 3. The pt will produce voicing in structured tasks and spontaneous speech WFL, as measured by VHI and CAPE-V assessment tools, pt report and clinician judgement. Treatment Activities Continued training of forward focus resonance to reduce laryngeal tension with phonation. The pt completed tasks of /m/ productions with focus on diaphragmatic breath support and vibration at lips. Reduced laryngeal tension was perceived by BOAT LOADER HELPER in ~85% of productions. Initiated training of VF adduction exercises using pulling technique and staccato vowel productions with monotone, pitch range, and song productions (using staccato vowels in place of humming or lyrics). Pt initially produced inconsistent breathiness with productions (e.g., /huynh/ for /a /), improving with skilled feedback, ongoing instruction with demonstrations, and practice. After 4-5 trials, the pt improved in her own ability to perceive distinctions between target and non-target productions and demonstrated initial abilities to self-correct. She benefited from slowing the productions and feeling air build up under VFs prior to voice onset of vowel productions. During these tasks, she engaged diaphragmatic breath support well, and verbalized recognition of abdominal pulsing with each production. Task was expanded to vowel- onset phrases and sentences. The pt recognized benefit in increased loudness to produce clear onset of vowels and improved to modified independence in producing target vocalizations. Vocal quality improved with these productions, with reduced strain and breathiness and increased vocal loudness. Assessment Patient Response to Treatment Good Rehab Potential Good Impairments Identified Vocal Quality,Vocal Hygiene, Other Additional Impairments Identified Chronic cough Progress Towards Goals Good Progress Assessment of Overall Progress Improving Assessment of Improvement Pt is making progress toward goals. Improved use of diaphragmatic breathing observed with VF adduction exercises. Significant improvement was seen from start to end of session with initial training of VF adduction exercises using staccato vowels and vowel- onset words in phrases and sentences. Improved vocal quality observed during exercises. No significant carryover to conversational speech observed in this initial training session. Reviewed with Patient Goals,Progress Being Made,Home Exercise Program Patient/Caregiver Understanding Good Plan Treatment Emphasis Next Session VF adduction, laryngeal relaxation in speech Therapeutic Contents Client Education,Home Exercise Program,Voice Training,Other Additional Areas of Treatment Strategies to reduce chronic cough Provided Patient/Caregiver Instruction Home Exercise Program,Plan of Care,Questions/Concerns Therapy Recommendations Continue with Current Program
--- NOTE | 2019-09-17 14:25 | ST.OPTN ---
Visit Care Team Role Provider Type Britany Ohara MD Primary Care Provider Physician Address: [address] [place] [address], [address], [place], [address] Matthew Moran MD Attending Provider Physician Address: [address] [place] [address], [id number] GM VIDEO Treatment Note GM VIDEO Treatment Note Start: 08/06/19 16:34 Freq: Status: Active Protocol: Document 09/17/19 11:32 KOLTON (Rec: 09/17/19 11:48 KOLTON [id number]) Speech Pathology Treatment Note Session Time Visit Start Time 10:30 Visit Stop Time 11:15 Total Visit Minutes 45 Visit Information Visit Number 03/01 Plan of Care Dates 08/06/19 - 11/06/19 Insurance Information Medicare Setting Treatment Setting Outpatient Care Visit Type Note Type Treatment Note Next Note Type Next Note Type Treatment Note General Information General Information This 74-yr-old female was seen by Dr. Moran on 07/24/[address] Britany Ohara d/t complaints of chronic cough, mucus in throat , and intermittent dysphonia. Symptoms often awaken the pt at night. The pt reported start of symptoms 7 mos ago after an episode of bronchitis . 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 There was evidence of benefit following bronchodilator. The pt also has experienced one significant episode of heartburn, after which she took Zantac briefly. She has discontinued bronchodilator and Zantac. The pt has a history of severe anxiety, for which she takes Diazepam/Valium 5mg 2x/day as needed, which she states takes the edge off the urge to cough and allows me to sleep better. The pt denies dysphagia. Subjective Observations/Patient Presentation Pt arrived on time. No new complaints. Chief Complaint(s) Voice Additional Areas of Concern Chronic cough Rehab Expectation/Goals: Patient Goals Eliminate chronic cough; improve vocal quality. Objective Short Term Goals 1. The pt will demonstrate understanding of relaxation methods by performing diaphragmatic breathing in structured tasks and neck/ shoulder stretches with 90% accuracy. 2. The pt will perform easy onset cough/hard swallow strategies with min prompts in 75% of opportunities to reduce cough and its impact on VFs. 3. The pt will verbalize understanding of subsystems of voice with 90% accuracy to establish foundation for reducing laryngeal tension and improving vocal quality. 4. The pt will verbalize understanding of GERD/LPR education and identify 2 or more modifications to oral intake and/or lifestyle to reduce symptoms. Shelter Goals 1. The pt will perform relaxation techniques independently in treatment and home practice with 90% accuracy to reduce laryngeal tension and improve vocal quality, as measured by pt report, performance in tx, and clinician judgement. 2. The pt will perform easy onset cough/hard swallow strategies with independently in 75% of opportunities to reduce cough and its impact on VFs. 3. The pt will produce voicing in structured tasks and spontaneous speech WFL, as measured by VHI and CAPE-V assessment tools, pt report and clinician judgement. Treatment Activities Continued training of forward focus resonance to reduce laryngeal tension with phonation. Instructed pt to alternate between holding tension in the jaw/throat area and releasing it to find and recognize the relaxed posture. Maintaining that posture, the pt completed tasks of /m/ productions in isolation and syllables, staccato vowel productions, pitch and loudness fluctuation tasks, and mimicking speech intonation (using How are you today?) with hum and /a/. During tasks when the pt was instructed to produce voice with a tense larynx vs relaxed , she consistently coughed or cleared her throat following tense productions, and no coughing or throat clearing was observed with relaxed productions, indicating increased laryngeal irritation with tension. Skilled feedback was provided, and review of medical records including findings of pulmonary function test, chest CT scan, and ENT assessment all pointing to obstructive lung disease. Discussed with pt the likelihood that this most likely contributes significantly to cough, that PND may also contribute, and that laryngeal tension clearly contributes as evidenced in today's treatment findings. She verbalized understanding and acknowledged benefits of improved vocal quality and potentially reduced cough from reducing laryngeal tension. In conversation, the pt's voice was perceived as noticeably clearer (reduced strain, roughness and especially breathiness), indicating benefit from VF adduction exercises. Assessment Patient Response to Treatment Good Rehab Potential Good Impairments Identified Vocal Quality,Vocal Hygiene, Other Additional Impairments Identified Chronic cough Progress Towards Goals Good Progress Assessment of Overall Progress Improving Assessment of Improvement Improvement of vocal quality observed today, specifically reduced roughness and breathiness, indicating benefit from VF adduction exercises and reduced laryngeal tension. Pt spoke with continuous phonation at greater loudness levels that previously perceived. She exhibited occasional mild coughing particularly at start of session and immediately following vocal productions made intentionally with laryngeal tension. No coughing /throat clearing occurred after relaxed throat productions, indicating laryngeal irritation and exaccerbation of cough associated with laryngeal tension. The pt demonstrated good ability to discern between target and non-target productions and modify voice to follow. The pt appeared more encouraged today secondary to evidence of progress. Given the presence of lung nodules and obstructive lung disease, as well as possible PND, complete elimination of cough is not likely via voice treatment only. However, the pt is successfully suppressing cough many times with behavioral cough suppression therapy (BCST), replacing cough with hard swallow. This was discussed with the pt, who verbalized agreement. Reviewed with Patient Goals,Progress Being Made,Home Exercise Program Patient/Caregiver Understanding Good Plan Treatment Emphasis Next Session VF adduction, laryngeal relaxation in speech Therapeutic Contents Client Education,Home Exercise Program,Voice Training,Other Additional Areas of Treatment Strategies to reduce chronic cough Provided Patient/Caregiver Instruction Home Exercise Program,Plan of Care,Questions/Concerns Therapy Recommendations Continue with Current Program
--- NOTE | 2019-09-24 17:16 | ST.OPTN ---
Visit Care Team Role Provider Type Britany Ohara MD Primary Care Provider Physician Address: [address] [place] [address], [address], [place], [address] Matthew Moran MD Attending Provider Physician Address: [address] [place] [address], [id number] RESOURCE ENGINEER Treatment Note RESOURCE ENGINEER Treatment Note Start: 08/06/19 16:34 Freq: Status: Active Protocol: Document 09/24/19 15:50 KOLTON (Rec: 09/24/19 17:11 KOLTON [id number]) Speech Pathology Treatment Note Session Time Visit Start Time 10:30 Visit Stop Time 11:15 Total Visit Minutes 45 Visit Information Visit Number 04/01 Plan of Care Dates 08/06/19 - 11/06/19 Insurance Information Medicare Setting Treatment Setting Outpatient Care Visit Type Note Type Progress Note Next Note Type Next Note Type Treatment Note General Information General Information This 74-yr-old female was seen by Dr. Moran on 07/24/[address] Britany Ohara d/t complaints of chronic cough, mucus in throat , and intermittent dysphonia. Symptoms often awaken the pt at night. The pt reported start of symptoms 7 mos ago after an episode of bronchitis . 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 There was evidence of benefit following bronchodilator. The pt also has experienced one significant episode of heartburn, after which she took Zantac briefly. She has discontinued bronchodilator and Zantac. The pt has a history of severe anxiety, for which she takes Diazepam/Valium 5mg 2x/day as needed, which she states takes the edge off the urge to cough and allows me to sleep better. The pt denies dysphagia. Subjective Observations/Patient Presentation Pt arrived on time. Continues to complain of mucus in her throat that moves around and alters her vocal quality and creates cough. She frequently has been employing hard swallow in place of cough. She will follow up with Pulmonology this week (Monday) . Chief Complaint(s) Voice Additional Areas of Concern Chronic cough Rehab Expectation/Goals: Patient Goals Eliminate chronic cough; improve vocal quality. Objective Short Term Goals 1. The pt will demonstrate understanding of relaxation methods by performing diaphragmatic breathing in structured tasks and neck/ shoulder stretches with 90% accuracy. GOAL MET 2. The pt will perform easy onset cough/hard swallow strategies with min prompts in 75% of opportunities to reduce cough and its impact on VFs. GOAL MET 3. The pt will verbalize understanding of subsystems of voice with 90% accuracy to establish foundation for reducing laryngeal tension and improving vocal quality. GOAL MET 4. The pt will verbalize understanding of GERD/LPR education and identify 2 or more modifications to oral intake and/or lifestyle to reduce symptoms. GOAL MET Meter Reader Goals 1. The pt will perform relaxation techniques independently in treatment and home practice with 90% accuracy to reduce laryngeal tension and improve vocal quality, as measured by pt report, performance in tx, and clinician judgement. GOAL MET 2. The pt will perform easy onset cough/hard swallow strategies with independently in 75% of opportunities to reduce cough and its impact on VFs. GOAL MET 3. The pt will produce voicing in structured tasks and spontaneous speech WFL, as measured by VHI and CAPE-V assessment tools, pt report and clinician judgement. GOAL NOT MET Treatment Activities Pt exhibited mild cough and throat clearing with increased frequency throughout today's session as compared to last visit. The pt's vocal quality was also percieved to be worsened as compared to last visit, with increased breathiness and roughness and reduced vocal loudness, consistent with quality at start of care. The pt reported consistent compliance with HEP tasks, including relaxation, breathing, and vocal adduction and forward focus resonance tasks. Continued training of forward focus resonance with /m/ words and sentences. Pt completed tasks with reduced roughness and mildly improved loudness. Minimal improvement of breathiness perceived with forward focus resonance alone; greater improvement observed with vocal fold adduction exercises. However, improvements are not long- lasting. Discussed POC with pt and noted minimal and inconsistent progress with vocal quality and the pt's original complaint of chronic cough. She stated again that she does not believe GERD/LPR is the source of her problems. We agreed to a follow-up appt with Dr. Moran, and the pt will also see Pulmonology again this week. She will follow up with me after these appts. In the meantime, instructed the pt to continue vocal exercises, GERD/LPR modifications, and relaxation techniques. Assessment Patient Response to Treatment Fair Rehab Potential Fair Impairments Identified Vocal Quality,Vocal Hygiene, Other Additional Impairments Identified Chronic cough Progress Towards Goals Good Progress Assessment of Overall Progress Improving Assessment of Improvement Over the course of treatment, the pt has made good progress in the way of verbalizing and demonstrating understanding of GERD/LPR symptoms, risks, and precautions. She now employs a hard swallow in place of cough whenever possible to reduce chronic coughing and potential damage to vocal folds and quality of voice. Vocal quality, however, remains largely unchanged. The pt did exhibit improved quality in one session; however, this has not been sustained. Targets of treatment have included VF adduction exercises to reduce breathiness, and relaxation techniques, diaphragmatic breathing, and forward focus resonance tasks to reduce laryngeal tension. The pt has demonstrated good ability to perform all tasks and reports daily compliance with HEP. She does report a decrease in coughing with use of hard swallow technique; however, she continues to complain of mucous in her throat consistent with SOC complaints. Recommend the pt follow up with Dr. Moran to further discuss the pt's symptoms. The pt will also follow up with Pulmonology this week, which may provide some insight regarding possible impact of lung nodules which were visualized on previous chest CT. Voice therapy will be held until after the pt has been seen by Dr. Moran. She has been instructed to continue with voice exercises until then. Reviewed with Patient Goals,Progress Being Made,Home Exercise Program Patient/Caregiver Understanding Good Plan Therapeutic Contents Client Education,Home Exercise Program,Voice Training,Other Additional Areas of Treatment Strategies to reduce chronic cough Provided Patient/Caregiver Instruction Home Exercise Program,Plan of Care,Questions/Concerns Therapy Recommendations Continue with Current Program
--- NOTE | 2019-10-29 16:50 | ST.OPDS ---
Visit Care Team Role Provider Type Britany Ohara MD Primary Care Provider Physician Address: [address] [place] [address], [address], [place], [address] Matthew Moran MD Attending Provider Physician Address: [address] [place] [address], [id number] [employer] Treatment Note PUBLIC TR[employer]IT SPECIALIST Treatment Note Start: 08/06/19 16:34 Freq: Status: Active Protocol: Document 10/29/19 16:16 KOLTON (Rec: 10/29/19 16:50 KOLTON [id number]) Speech Pathology Treatment Note Session Time Visit Start Time 15:40 Visit Stop Time 16:10 Total Visit Minutes 30 Visit Information Visit Number 05/01 Plan of Care Dates 08/06/19 - 11/06/19 Insurance Information Medicare Setting Treatment Setting Outpatient Care Visit Type Note Type Discharge Summary General Information General Information This 74-yr-old female was seen by Dr. Moran on 07/24/[address] Britany Ohara d/t complaints of chronic cough, mucus in throat, and intermittent dysphonia. Symptoms often awaken the pt at night. The pt reported start of symptoms 7 mos ago after an episode of bronchitis. She was seen by pumonology for Pulmonary Function Test, which revealed moderately severe obstructive lung diseased based on reduction of FEV1; restrictive lung disease based on reduction SVC; and significantly reduced diffusing capacity suggesting disease at the capillary alveolar level. There was evidence of benefit following bronchodilator. The pt also has experienced one significant episode of heartburn, after which she took Zantac briefly. She has discontinued bronchodilator and Zantac. The pt has a history of severe anxiety, for which she takes Diazepam/Valium 5mg 2x/day as needed, which she states takes the edge off the urge to cough and allows me to sleep better. The pt denies dysphagia. Subjective Observations/Patient Presentation Pt arrived on time. Reported feeling her voice is much stronger, although it changes throughout the day and on occasion goes out on her. She continues with frequent coughing but is able to sometimes suppress this with hard swallow and easy-onset cough strategy. She informed of meeting with Dr. Moran, ENT, who recommended allergy testing and GI assessment for GERD. She was in agreement with this and has an appt set with GI, then will pursue allergy testing. She expressed appreciation for voice therapy and stated, I have all the tools I need. Agreed to discharge from skilled intervention. Chief Complaint(s) Voice Additional Areas of Concern Chronic cough Rehab Expectation/Goals: Patient Goals Eliminate chronic cough; improve vocal quality. Patient Knowledge/Awareness of PUBLIC TRANSIT SPECIALIST Role Excellent in Treatment Patient/Caregiver Compliance with Home Excellent Exercise Program Objective Short Term Goals 1. The pt will demonstrate understanding of relaxation methods by performing diaphragmatic breathing in structured tasks and neck/ shoulder stretches with 90% accuracy. GOAL MET 2. The pt will perform easy onset cough/hard swallow strategies with min prompts in 75% of opportunities to reduce cough and its impact on VFs. GOAL MET 3. The pt will verbalize understanding of subsystems of voice with 90% accuracy to establish foundation for reducing laryngeal tension and improving vocal quality. GOAL MET 4. The pt will verbalize understanding of GERD/LPR education and identify 2 or more modifications to oral intake and/or lifestyle to reduce symptoms. GOAL MET Trim Sawyer Goals 1. The pt will perform relaxation techniques independently in treatment and home practice with 90% accuracy to reduce laryngeal tension and improve vocal quality, as measured by pt report, performance in tx, and clinician judgement. GOAL MET 2. The pt will perform easy onset cough/hard swallow strategies with independently in 75% of opportunities to reduce cough and its impact on VFs. GOAL MET 3. The pt will produce voicing in structured tasks and spontaneous speech WFL, as measured by VHI and CAPE-V assessment tools, pt report and clinician judgement. SIGNIFICANT IMPROVEMENT, MILD IMPAIRMENT Treatment Activities The pt exhibited minimal throat clearing and coughing throughout the session and significantly improved vocal quality and strength. She completed sustained phonation task with max phonation time of 11 sec, which is below normal levels (normal = min 15 sec for females) but was able to do so with continual clear phonation, which is an improvement from SOC. Evaluated pt's progress using Voice Handicap Index (VHI) and CAPE-V rating scales with the following scores: VHI: Total score 9/120 (WNL); Functional Subscale 3; Physical Subscale 6; Emotional Subscale 0. CAPE-V: Overall Severity Mild (16%); Roughness WFL (8%); Breathiness Mild (10%); Strain Mild (11%); Pitch WNL; Loudness WFL (4%) Skilled feedback provided orally and with voice recording comparisons of voice from SOC to EOC. The pt expressed happiness with results of treatment. Assessment Patient Response to Treatment Excellent Impairments Identified Vocal Quality,Vocal Hygiene, Other Additional Impairments Identified Chronic cough Progress Towards Goals Excellent Progress,Appropriate for Discharge Assessment of Overall Progress Improving Assessment of Improvement Over the course of treatment, the pt has made very good progress in improving quality of voice, particularly over the last 3-4 weeks, as demonstrated by CAPE-V scores and before/after voice recordings. She exhibits a stronger voice and continual voicing in conversational speech and structured tasks. Although VHI scores are higher than the pt's total score of 2 at SOC (Emotional Subscale), they demonstrate improvement in that she now scores 0 emotional impact, and changes in vocal function and physical effort are now present in response to improved vocal quality. For example, the pt reported that her voice sometimes varies throughout the day, whereas at SOC it was consistently poor quality. The pt has been very consistent with her home practice and demonstrates understanding of tools and ability to continue using them independently to sustain progress or continue improving. The pt has also made good progress in the way of verbalizing and demonstrating understanding of GERD/LPR symptoms, risks, and precautions. She now employs a hard swallow in place of cough whenever possible to reduce chronic coughing and potential damage to vocal folds and quality of voice. She does report a decrease in coughing with use of hard swallow technique; however, she continues to complain of mucous in her throat consistent with SOC complaints, indicating that the source of the problem continues. It is hoped that GI evaluation and/or allergy testing will lead to answers and a remedy. Reviewed with Patient Goals,Progress Being Made,Home Exercise Program Patient/Caregiver Understanding Good Plan Frequency of Treatment No Further Therapy Therapeutic Contents Client Education,Home Exercise Program,Voice Training,Other Additional Areas of Treatment Strategies to reduce chronic cough Provided Patient/Caregiver Instruction Home Exercise Program,Plan of Care,Questions/Concerns Therapy Recommendations Discharge to Home Exercise Program,Discharge from Speech Therapy
== END 2019-10-30 12:56 ==
LOC: SP 15:30
PROVIDERS: PCP Student in an Organized Health Care Education/Training Program; Visit Provider Otolaryngology
DX: J38.3 Other diseases of vocal cords (principal); R05 Cough
CPT/HCPCS: 92507; 92524

== ENCOUNTER → 2020-05-05 10:41 | Outpatient (CLI) | payer MEDICARE, OTHER, SELFPAY ==
--- NOTE | 2020-05-05 | DI.MG.S_ITS ---
BILATERAL DIGITAL SCREENING MAMMOGRAM 3D/2D WITH CAD: 05/05/2020 CLINICAL: Routine screening. Family history of breast cancer. Comparison is made to exams dated: 02/18/2019 mammogram - [facility], 12/26/2017 mammogram, and 11/10/2016 mammogram - [facility]. There are scattered fibroglandular elements in both breasts. Current study was also evaluated with a Computer Aided Detection (CAD) system. No significant masses, calcifications, or other findings are seen in either breast. There has been no significant interval change. IMPRESSION: NEGATIVE There is no mammographic evidence of malignancy. A 1 year screening mammogram is recommended. This exam was interpreted at Station ID: [id number]. NOTE: For mammograms, a report in lay terms will be sent to the patient. Approximately 15% of breast malignancies will not be visualized mammographically. In the management of a palpable breast mass, a negative mammogram must not discourage biopsy of a clinically suspicious lesion. Electronically Signed By: Vito nolan/cassandra:05/05/2020 12:51:01 letter sent: Normal Exam ACR BI-RADS Category 1: Negative [id number]
== END ==
PROVIDERS: PCP Student in an Organized Health Care Education/Training Program; Referring Provider Student in an Organized Health Care Education/Training Program; Visit Provider Student in an Organized Health Care Education/Training Program
DX: Z12.31 Encounter for screening mammogram for malignant neoplasm of breast (principal); Z80.3 Family history of malignant neoplasm of breast
CPT/HCPCS: 77063; 77067

== ENCOUNTER → 2020-05-30 15:32 | Outpatient (CLI) | payer MEDICARE, OTHER, SELFPAY ==
[2020-05-31 17:02] LABS: COVID19 Sendout Not Detected (Not Detect)
== END ==
PROVIDERS: PCP Student in an Organized Health Care Education/Training Program; Visit Provider Physician Assistant
DX: Z11.59 Encounter for screening for other viral diseases (principal)
CPT/HCPCS: 87635

== ENCOUNTER 2020-06-02 07:42 | Day surgery (SDC) | payer MEDICARE, OTHER, SELFPAY ==
[2020-06-02] MEDS: PROPARACAINE 0.5% OPHTH SOL 2 DROPS EYE-OP (08:34)
[2020-06-02] MEDS: CATARACT EYE COMPOUND (10 DROPS/SYRINGE) 3 DROPS EYE-OP (08:34)
[2020-06-02 08:40] VITALS: BP 158/79; PULSE 99; RESP 71; TEMP 35.8; O2SAT 15; BMI 22.4
--- NOTE | 2020-06-02 09:32 | PM.PREOP ---
Pre-operative Note Interval Note History & Physical reviewed/Exam performed by Physician: Yes Changes to H&P: No
--- NOTE | 2020-06-02 09:32 | PM.OP.1 ---
Operative Date/Time/Diagnoses Pre-op diagnosis: Nuclear cataract right eye Procedure & Clinicians Procedure: Cataract Surgery Same procedure as scheduled: Yes Surgeon: Thanh Reese Anesthesia Type: MAC +/- and Sedation Operative Notes Procedure in detail: Patient brought to the operating suite. Tetracaine drops placed in the right eye. Patient was prepped and draped in sterile manner. Wire lid speculum was placed in the eye. Betadine drops were placed on the eye. This was irrigated. Lidocaine jelly was placed on the eye. A paracentesis port was created with a side-port blade. 0.1 mL 1% preservative free lidocaine was injected into the anterior chamber. The anterior chamber was deepened with viscoelastic. 2.6 mm keratome was used to create a temporal clear corneal incision. Cystotome and Utrata forceps were used to create continuous tear capsulorrhexis. Balanced salt solution was used to hydro dissect the nucleus. The phacoemulsification handpiece was inserted and the nucleus was removed using the stop and chop technique. The irrigation aspiration handpiece was inserted and the remaining cortex was removed. Anterior chamber was deepened with viscoelastic. An Vargas [id number] intraocular lens with a power of 24.5 was injected into the capsular bag. Irrigation aspiration handpiece was inserted and the remaining viscoelastic was removed. Incision was hydrated with balanced salt solution and found to be leak free with pressure with Weck-Hansa sponges. 0.1 mL Vigamox injected anterior chamber. 0.3 mL Kenalog 10 mg was injected subconjunctivally. Lid speculum was removed. The patient left the operating room in excellent condition. Complications: none Post-operative Condition: stable Disposition: same day surgery
[2020-06-02] MEDS: MOXIFLOXACIN INJ 5 MG/ML VIAL EYE-OP (09:51)
[2020-06-02] MEDS: TRIAMCINOLONE 50 MG/5 ML VIAL INJ (09:51)
[2020-06-02] MEDS: PHENYLEPHRINE/LIDOCAINE VIAL (OR) 0.2 ML EYE-OP (09:51)
[2020-06-02] MEDS: CHONDROIDTIN/SOD HYALURONATE 1.05 ML SYRINGE INTRAOCULA (09:51)
[2020-06-02] MEDS: LIDOCAINE JELLY 2% 5 ML 1 APPLIC TOP (09:52)
[2020-06-02] MEDS: BALANCED SALT IRRIG SOLN NO.2 500 ML, EPINEPHrine 1 MG IRR (09:52)
[2020-06-02] MEDS: TETRACAINE 0.5% OPHTH DROPS 4 ML 2 DROPS EYE-OP (09:52)
[2020-06-02 10:05] VITALS: BP 140/73; PULSE 68; RESP 16; TEMP 36.4; O2SAT 96
--- NOTE | 2020-06-02 10:25 | SUR.PHASEII ---
1020- Pt dcd in stable condition, VSS, gait steady. Pt dcd via wc to curbside.
== END 2020-06-02 10:20 | disposition home or self-care (01) ==
PROVIDERS: PCP Student in an Organized Health Care Education/Training Program; Referring Provider Student in an Organized Health Care Education/Training Program; Visit Provider Ophthalmology
PROC: (CPT 66984; principal; 2020-06-02 09:45)
DX: H25.11 Age-related nuclear cataract, right eye (principal); R56.9 Unspecified convulsions
CPT/HCPCS: 66984; J0171; J2250; J2704; J3301

== ENCOUNTER → 2020-07-04 10:31 | Outpatient (CLI) | payer MEDICARE, OTHER, SELFPAY ==
[2020-07-06 10:37] LABS: COVID19 Sendout Not Detected (Not Detect)
== END ==
PROVIDERS: PCP Student in an Organized Health Care Education/Training Program; Visit Provider Nurse Practitioner
DX: Z11.59 Encounter for screening for other viral diseases (principal)
CPT/HCPCS: 87635

== ENCOUNTER 2020-07-07 10:30 | Observation (INO) | payer MEDICARE, OTHER, SELFPAY ==
[2020-07-07] VITALS (15 sets, daily range): BP systolic 102–157; BP diastolic 59–94; PULSE 61–101; RESP 14–20; TEMP 36.4–37.4; O2SAT 94–100; BMI 22.4
--- NOTE | 2020-07-07 | DI.RAD.S_ITS ---
PROCEDURE: XR CHEST 1V INDICATIONS: post code TECHNIQUE: One view of the chest was acquired. COMPARISON: [facility], CR, CHEST 2 VIEW, 09/01/2015, 10:53. [facility], CT, CT CHEST WO CON, 07/18/2019, 14:48. [facility], CR, XR CHEST 2V, 05/28/2019, 11:33. FINDINGS: Surgical changes and devices: None. Lungs and pleura: On this semiupright portable chest examination, no large pneumothorax or large pleural effusions are seen. No focal infiltrates are seen. Mediastinum: The cardiac contours are within normal limits. The aorta demonstrates calcification and tortuosity. Bones and chest wall: No suspicious bony lesions. Age-appropriate bony degenerative changes are seen. No displaced fractures can be seen. Overlying soft tissues appear unremarkable. IMPRESSION: No significant portable chest abnormality is seen. No pneumothorax or displaced rib fracture can be seen. Dictated by: Feliz Hughes M.D. on 07/07/2020 at 8:40 Approved by: Feliz Hughes M.D. on 07/07/2020 at 8:41
[2020-07-07] MEDS: PROPARACAINE 0.5% OPHTH SOL 2 DROPS EYE-OP (07:11)
[2020-07-07] MEDS: CATARACT EYE COMPOUND (10 DROPS/SYRINGE) 3 DROPS EYE-OP (07:12)
--- NOTE | 2020-07-07 07:32 | PM.PREOP ---
Pre-operative Note Interval Note History & Physical reviewed/Exam performed by Physician: Yes Changes to H&P: No
--- NOTE | 2020-07-07 07:33 | P.OP_ITS ---
Operative Date/Time/Diagnoses Pre-op diagnosis: Nuclear Cataract Left eye Post-op diagnosis: same Procedure & Clinicians Same procedure as scheduled: Yes Surgeon: Thanh Reese Anesthesia Type: MAC +/- and Sedation Operative Notes Procedure in detail: Patient brought to the operating suite. Tetracaine drops placed in the left eye. Patient was prepped and draped in sterile manner. Wire lid speculum was placed in the eye. Betadine drops were placed on the eye. This was irrigated. Lidocaine jelly was placed on the eye. A paracentesis port was created with a side-port blade. 0.1 mL 1% preservative free lidocaine was injected into the anterior chamber. The anterior chamber was deepened with viscoelastic. 2.6 mm keratome was used to create a temporal clear corneal incision. Cystotome and Utrata forceps were used to create continuous tear capsulorrhexis. Balanced salt solution was used to hydro dissect the nucleus. The phacoemulsification handpiece was inserted and the nucleus was removed using the stop and chop technique. The irrigation aspiration handpiece was inserted and the remaining cortex was removed. Anterior chamber was deepened with viscoe lastic. An Vargas ZCB00 intraocular lens with a power of 23.5 was injected into the capsular bag. Irrigation aspiration handpiece was inserted and the remaining viscoelastic was removed. Incision was hydrated with balanced salt solution and found to be leak free with pressure with Weck-Hansa sponges. 0.1 mL Vigamox injected anterior chamber. 0.3 mL Kenalog 10 mg was injected subconjunctivally. There was a 1X2mm central epithelial defect. An air optix aqua bandage contact lens was placed on the cornea. Lid speculum was removed. The patient left the operating room in excellent condition. Complications: none Post-operative Condition: stable Disposition: same day surgery
[2020-07-07] MEDS: CHONDROIDTIN/SOD HYALURONATE 1.05 ML SYRINGE INTRAOCULA (07:56)
[2020-07-07] MEDS: LIDOCAINE JELLY 2% 5 ML 1 APPLIC TOP (07:56)
[2020-07-07] MEDS: PHENYLEPHRINE/LIDOCAINE VIAL (OR) 0.2 ML EYE-OP (07:56)
[2020-07-07] MEDS: MOXIFLOXACIN INJ 5 MG/ML VIAL EYE-OP (07:56)
[2020-07-07] MEDS: BALANCED SALT IRRIG SOLN NO.2 500 ML, EPINEPHrine 1 MG IRR (07:57)
[2020-07-07] MEDS: TRIAMCINOLONE 50 MG/5 ML VIAL INJ (07:57)
[2020-07-07] MEDS: TETRACAINE 0.5% OPHTH DROPS 4 ML 2 DROPS EYE-OP (07:57)
[2020-07-07 08:59] LABS: Hematocrit 39.2 % (36-46); Hemoglobin 13.1 g/dL (12.0-16.0); Mean Corpuscular HGB Conc 33.4 % (30-36); Mean Corpuscular Hemoglobin 29.6 PG (26-34); Mean Corpuscular Volume 88.7 fL (80-100); Platelet Count 164 X10^3/uL (150-400); Red Blood Cell Count 4.42 X10^6/uL (4.0-5.2); Red Cell Distribution Width 12.6 % (11.6-14.8); White Blood Cell Count 7.3 X10^3/uL (4.5-11.0)
[2020-07-07 09:09] LABS: Alanine Aminotransferase 27 IU/L (<35); Albumin 4.2 g/dL (3.5-5.0); Albumin Globulin Ratio 1.6 (1.0-2.8); Alkaline Phosphatase 87 U/L (38-126); Aspartate Aminotransferase 33 IU/L (14-36); BUN Creatinine Ratio 14.9 (6-22); Bilirubin Total 0.5 mg/dL (0.2-1.3); Blood Urea Nitrogen 13 mg/dL (7-17); Calcium 8.9 mg/dL (8.4-10.2); Carbon Dioxide 28 mmol/L (22-32); Chloride 100 mmol/L (98-107); Creatine Kinase 61 U/L (30-135); Estimated Glomerular Filt Rate > 60.0 mL/min (>60); Globulin 2.6 g/dL (1.7-4.1); Glucose 136 mg/dL (80-110); HEMOLYSIS < 15 (0-50); Potassium 3.9 mmol/L (3.4-5.1); Sodium 136 mmol/L (137-145); Total Protein 6.8 g/dL (6.3-8.2)
--- NOTE | 2020-07-07 09:10 | SUR.PHASEII ---
0840: Patient becomes unresponsive after c/o dizziness post procedure. Code Blue called; see Code Blue documentation.
[2020-07-07 09:11] LABS: Neutrophils Absolute Manual 3577 /uL (3000-5900); RBC Morphology Normal Morphology; Total Cells Counted 100
--- NOTE | 2020-07-07 09:11 | SUR.PHASEII ---
Patient responsive with GCS 15. Patient denies any pain at this time, except to chest wall from CPR given previously. VSS. Denies nausea or dizziness at this time. CXR done at bedside. Labs sent.
[2020-07-07 09:21] LABS: Troponin I < 0.012 ng/mL (0.01-0.034)
--- NOTE | 2020-07-07 09:44 | SUR.PHASEII ---
Plan per Sonya, pt to be admitted to floor care with telemetry. Pt denies chest pain, pressure. 130/67, 76. 14, 95. Awiting to here from Epi for bed placement.
--- NOTE | 2020-07-07 10:36 | PC.NURSE ---
Day shift note: Received patient from PACU by Amilcar RECIO, awake, alert, and oriented. Transferred from [facility] to bed independently. Placed on Tele upon arrival, VSS. 99% O2 sat on RA. Resting in bed, watching HGTV. Oriented to room, environment, and plan of care. No c/o of dizziness, or SOB. Requesting light off and window panel to be closed, sensitive to light. Call light within reach.
[2020-07-07] MEDS: ONDANSETRON 4 MG/2 ML INJ IV (11:43)
[2020-07-07] MEDS: LORazepam 2 MG/ML INJ 1 MG IV (11:43)
--- NOTE | 2020-07-07 11:50 | DI.CT.S_ITS ---
PROCEDURE: CT HEAD/BRAIN WO CON INDICATIONS: seizure TECHNIQUE: Noncontrast 4.5 mm thick angled axial sections acquired from the foramen magnum to the vertex, with coronal and sagittal reformats. For radiation dose reduction, the following was used: automated exposure control, adjustment of mA and/or kV according to patient size. COMPARISON: None. FINDINGS: Image quality: Excellent. CSF spaces: Basal cisterns are patent. No extra-axial fluid collections. The ventricles are symmetric in size and shape. Brain: No intracranial bleeds or masses. There is cerebral volume loss for age, with resultant ventricular and sulcal prominence. There are periventricular and deep white matter chronic small vessel ischemic changes. There is intracranial internal carotid artery atherosclerosis. Skull and face: Calvarium and visualized facial bones appear intact, without suspicious lesions. Sinuses: Visualized sinuses and mastoids are clear. IMPRESSION: No CT evidence of acute intracranial pathology. Mild age-appropriate atrophy. Dictated by: Robert Klein M.D. on 07/07/2020 at 12:21 Approved by: Robert Klein M.D. on 07/07/2020 at 12:22
--- NOTE | 2020-07-07 11:51 | DI.RAD.S_ITS ---
PROCEDURE: XR KUB INDICATIONS: vomiting TECHNIQUE: One view of the abdomen acquired. COMPARISON: [facility], CR, XR CHEST 1V, 07/07/2020, 9:06. [facility], CT, CT HEAD/BRAIN WO CON, 07/07/2020, 12:06. FINDINGS: Surgical changes and devices: None. Bowel: Bowel gas pattern is normal. Soft tissues: No suspicious abdominal calcifications. Visualized solid organ contours appear normal in size. Bones: No suspicious bony lesions. Age-appropriate bony degenerative changes are seen. IMPRESSION: A nonobstructive bowel gas pattern is seen. As clinically appropriate, please consider a repeat plain film study or a dedicated CT of the abdomen and pelvis, if the patient's symptoms persist or worsen. Dictated by: Feliz Hughes M.D. on 07/07/2020 at 11:42 Approved by: Feliz Hughes M.D. on 07/07/2020 at 11:43
--- NOTE | 2020-07-07 12:55 | PM.HP.1 ---
History of Present Illness History of Present Illness Date Patient Seen: 07/07/20 Chief complaint: LEFT CATARACT PRECEDURE FOLLOWED BY SYNCOPE Narrative: The patient is a 75-old female with a history of depression and allergic rhinitis as well as hyperlipidemia: She underwent left cataract surgery today. The procedure occurred uneventfully. Intraoperatively she did receive Betadine drops lidocaine jelly lidocaine injection into the anterior chamber as well as Kenalog injection into the left eye. Postoperatively the patient was getting prepared to leave to go home from the perioperative area. Patient stood up to go home and reported she did not feel well. She then lost consciousness fell back and had stiffening of her arms per although she was on telemetry this was not documented a recorded. She did have a 12 lead EKG which was unremarkable. The patient received a CPR briefly after which she awoke and was more responsive. Blood pressure was within normal limits following. Heart rate was bradycardic at about 53. The patient was given IV hydration and arrangements were made for her to be admitted under observation to the medical floor. Patient was in the room and they were attempting orthostatic vital signs on her. She again complained of feeling nauseated. She then loss consciousness stiffened her arms and was briefly unresponsive. She quickly was able to regain consciousness. She was more significantly nauseated with 3 episodes of vomiting. Telemetry monitoring at that time confirmed heart rate of 27-29 during the event. Following that her heart rate improved significantly. The patient underwent a head CT given her history of seizures. The head CT was negative. She had a KUB of the abdomen which showed no evidence of bowel obstruction. She will be admitted under observation for further evaluation of what is deemed to be vasovagal syncope. Although the patient had some stiffening, there was no overt tonic-clonic activity noted, there was no tongue biting, or incontinence. Patient does have a remote history of seizure 20 years ago. She currently is not on any anticonvulsants. And per the patient she has never been treated with anticonvulsants. Patient History Medical History (Updated 07/07/20 @ 13:03 by Magdalena Duque MD) Acute bacterial bronchitis (Acute) Allergic rhinitis (Acute) Endometrial cancer (Acute) Seizure (Acute) Family & Social History Social History: household members none Tobacco & Substance use: Smoking Status Former smoker alcohol intake frequency 3 or more drinks per day Substance Use Type does not use Meds Home Medications and Allergies Home Medications Medication Instructions Recorded Confirmed Type cetirizine [Zyrtec] 10 mg PO DAILY 06/02/20 07/07/20 History sertraline 75 mg PO DAILY 06/02/20 07/07/20 History Allergies Allergy/AdvReac Type Severity Reaction Status Date / Time codeine Allergy Verified 07/04/20 10:30 Review of Systems Review of Systems ROS: Yes All systems reviewed with the patient and are negative except as otherwise documented Exam Vital Signs (past 8 hours): - 07/07/20 07:13 07/07/20 08:20 07/07/20 10:30 Temperature 98 F 97.5 F L 97.8 F Pulse Rate 88 61 78 Respiratory Rate 20 16 16 Blood Pressure 156/84 H 126/69 124/70 Pulse Oximetry 100 98 98 07/07/20 10:55 Temperature Pulse Rate Respiratory Rate Blood Pressure Pulse Oximetry 99 Oxygen Delivery Method Room Air Oxygen Flow Rate 0 Narrative Exam Narrative: Ill-appearing female vomiting HEENT: Normocephalic atraumatic extraocular muscles are intact oropharynx is clear, I dressing over the left eye Lungs: Clear to auscultation Cardiac exam: Regular rate and rhythm normal S1-S2 Abdomen: Soft nontender nondistended No edema Objective Labs Result Diagrams: 07/07/20 08:53 07/07/20 08:53 Labs: Laboratory Results - last 24 hr 07/07/20 07/07/20 08:53 08:53 WBC 7.3 RBC 4.42 Hgb 13.1 Hct 39.2 MCV 88.7 MCH 29.6 MCHC 33.4 RDW 12.6 Plt Count 164 Total Counted 100 Seg Neutrophils % 49.0 Lymphocytes % (Manual) 29.0 Atypical Lymphs % 10.0 H Monocytes % (Manual) 8.0 Eosinophils % (Manual) 1.0 L Basophils % (Manual) 3.0 H Neutrophils # (Manual) 3577 RBC Morphology Normal morphology Sodium 136 L Potassium 3.9 Chloride 100 Carbon Dioxide 28 BUN 13 Creatinine 0.87 Estimated GFR > 60.0 BUN/Creatinine Ratio 14.9 Glucose 136 H Calcium 8.9 Total Bilirubin 0.5 AST 33 ALT 27 Alkaline Phosphatase 87 Total Creatine Kinase 61 CK-MB (CK-2) TNP CK-MB (CK-2) Rel Index TNP Troponin I < 0.012 Total Protein 6.8 Albumin 4.2 Globulin 2.6 Albumin/Globulin Ratio 1.6 Assessment & Plan Assessment & Plan narrative: Impression 1. 75-year-old female status post left cataract surgery who developed abrupt onset of syncope -suspect vasovagal syncope -patient has no history of 6 -no known history of cardiac disease -she had a recurrent episode associated with vomiting upon arrival to the floor -suspect the trigger was her recent cataract surgery -head CT is negative -no obvious witnessed seizure activity -will continue IV hydration, antiemetics, and child monitor -1st set of cardiac enzymes are negative, EKG is negative, -will obtain cardiac echo to evaluate wall motion abnormalities or any valvular dysfunction -should the patient have another recurrent episode associated with bradycardia with suggest transfer to [facility] for possible pacemaker placement -I have discussed this with Dr. Beal cardiology, he recommends continued observation in transfer if further episodes occur 2. Status post cataract surgery -management per ophthalmology 3. Depression -continue Zoloft 4. Allergic rhinitis -resume Zyrtec upon arrival home Patient will not be placed on DVT prophylaxis given her recent surgery Anticipate discharge home tomorrow Patient is admitted under observation as it is infected that she will be here less than 24 hours Patient is a full code will note that her record accordingly
--- NOTE | 2020-07-07 13:09 | PC.NURSE ---
Event note: Orthostatic VS performed by Amy MIRANDA, 30 seconds after Ortho VS, patient c/o nausea, had an emesis, and patient became unresponsive with body rigidity at approximately 1138. Staff assist was called. Per Amy, patient had pulse, and was breathing. This RN, upon arrival noted patient with rigid body shaking, pallor to lips and face, for approximately 90 seconds. Placed side lying, O2 sats remain between 98-99% on RA. No emesis during seizure activity, suction set up at bedside. Dr. Duque at bedside, 1 mg Ativan IV administered, and Zofran 4mg IV. Please VS flowsheet for details. Large pink tinged emesis noted, x 2 episodes (150 ml), (300ml). Seizure pads in place. Pt. to Ct scan, off floor at 1155, mild nausea, no emesis, awake, and alert. Patient returned from CT scan and abdominal Xray to at 1220, this RN at patient bedside during both diagnostic procedures. Upon arrival, VSS and remain on RA. No seizure activity or nausea. C/O discomfort to anterior chest wall, due to chest compression earlier this day. 1305: ECHO being performed at bedside, patient continue awake, alert, and calm. Requesting warm blankets.
--- NOTE | 2020-07-07 13:15 | DI.ECHO.S_ITS ---
Echocardiogram Report + + :Name: PAULINA TORRES Study Date: 07/07/2020 Height: 69 in : :[facility] Weight: 152 lb : : Gender: Female BSA: 1.8 m2 : :: 1945 Age: 75 yrs BP: 156/84 mmHg: :Reason For Study: SYNCOPE : :Ordering Physician: : :SHRAVANISTROSEMARY Performed By: Maria M Crowe : :Referring: MISAEL ORTIZ : + + Interpretation Summary Normal sinus rhythm. Normal LV size, wall thickness, wall motion and LV systolic function. EF is 55-60%. Normal chamber sizes. No significant valvular abnormalities. No etiology of syncope found. No prior study available for comparison. Procedure: A two-dimensional transthoracic echocardiogram with color flow and Doppler was performed. The study quality was technically adequate. There is no prior echocardiogram noted for this patient. The heart rate ranged between 62-64 bpm during the study. Left Ventricle: The left ventricle is normal in size and wall thickness. The ejection fraction is estimated to be 55-60%. Diastolic parameters suggest probable normal left ventricular diastolic function and normal filling pressures. Right Ventricle: The right ventricle is normal in size and function. Atria: Both atria are normal in size. There is no Doppler evidence for an interatrial shunt. Mitral Valve: The mitral valve is normal in structure and function. There is trace mitral regurgitation. Aortic Valve: The aortic valve is trileaflet. The aortic valve opens well. There is no aortic valve stenosis. No aortic regurgitation is present. Tricuspid Valve: The tricuspid valve is normal in structure but is abnormal in function. Pulmonary artery pressures cannot be estimated because of the lack of a measurable TR jet velocity but the IVC suggests a CVP of around 3 mmHg. Pulmonic Valve: The pulmonic valve leaflets are thin and pliable; valve motion is normal. There is a trace or physiologic amount of pulmonic regurgitation. Great Vessels: The aortic root is normal size. The dimensions of the ascending aorta are normal. The IVC is of normal diameter and collapses greater than 50% with a sniff. This suggests a low right atrial pressure of 3 mm Hg. Pericardium/ Pleura There is no pericardial effusion. There is no pleural effusion. MMode/2D Measurements & Calculations LVIDd: 4.5 cm LVOT diam: 1.9 cm LVIDs: 3.1 cm Ao root diam: 3.3 cm FS: 30.7 % asc Aorta Diam: 3.2 cm EPSS: 0.68 cm Ao Arch Diam (Prox Trans): 2.5 cm IVSd: 0.81 cm LVPWd: 0.92 cm LV guzman. diameter/BSA (cm/m^2): 2.4 LV sys. diameter/BSA (cm/m^2): 1.7 LA A2 area: 11.1 cm2 RA long axis: 4.7 cm LA A4 area: 13.4 cm2 RA area: 13.4 cm2 LA length (vol): 4.8 cm RA vol: 32.9 ml LA vol: 26.7 ml RA : 17.9 ml/m2 LA vol index: 14.5 ml/m2 IVC diam: 1.4 cm RVD1 (basal): 3.0 cm TAPSE: 2.6 cm Doppler Measurements & Calculations Ao V2 max: 120.3 cm/sec LVOT Max Han: 94.0 cm/sec Ao V2 mean: 75.1 cm/sec LV V1 max P.5 mmHg Ao max P.8 mmHg LV V1 VTI: 18.7 cm Ao mean P.7 mmHg LIANA(I,D): 2.2 cm2 Ao V2 VTI: 24.9 cm LIANA(V,D): 2.3 cm2 sev ratio: 0.75 LIANA indexed to BSA (cm^2/m^2): 1.2 MV E max han: 71.4 cm/sec PA V2 max: 58.0 cm/sec MV A max han: 82.0 cm/sec PA V2 mean: 39.1 cm/sec MV E/A: 0.87 PA mean P.69 mmHg Med Peak E' Han: 6.0 cm/sec PA pr(Accel): 17.3 mmHg E/E' med: 11.8 Lat Peak E' Han: 7.7 cm/sec E/E' lat: 9.3 E/e' average: 10.6 MV dec time: 0.26 sec SV(LVOT): 55.1 ml Electronically signed by: Talisha Mike M.D. on Reading Physician:07/07/2020 06:51 PM
[2020-07-07] MEDS: DEXTROSE 5%-0.45% NS 1,000 ML 100 ML IV (14:06)
[2020-07-07] MEDS: ACETAMINOPHEN 325 MG TABLET 650 MG PO (14:29)
--- NOTE | 2020-07-07 18:12 | PC.NURSE ---
Addendum entered by Sonya Pisano R.N. 07/07/20 21:34: Pt resting at intervals throughout evening. No further episodes of dizziness mentioned. IVF changed to HL Tele remains in place. Call light w/in reach, bed alrm on folr pt safety. Continue w/plan of care. Original Note: Pt alert/oriented. No signs of any seizure type activity. Pt states that she is feeling better Lungs clear, SpO2 97% RA. Left eye protected w/plactic lens covering. Tele NSR/first degree AVB per ICU staff. IVF D5 1/2NS @ 100cc/hr into the RAC via pump w/o incidence. Left hand HL intact/patent. Denies discomfort at this time. Call light w/in reach, bed alarm on for pt safety.
[2020-07-07] MEDS: SERTRALINE 50 MG TABLET 75 MG PO (20:39)
[2020-07-08] VITALS: BP 132/53; PULSE 68; RESP 18; TEMP 36.5; O2SAT 95
[2020-07-08 02:00] VITALS: O2SAT 95
[2020-07-08 05:23] LABS: Magnesium 2.3 mg/dL (1.6-2.3)
[2020-07-08 06:00] VITALS: BP 127/61; BP 135/70; BP 135/74; PULSE 66; PULSE 69; PULSE 72; RESP 18; TEMP 36.6; O2SAT 97
--- NOTE | 2020-07-08 08:24 | P.DS_ITS ---
History of Present Illness History of Present Illness Date Patient Seen: 07/07/20 Chief complaint: LEFT CATARACT PRECEDURE FOLLOWED BY SYNCOPE Narrative: Written by Dr. Duque: The patient is a 75-old female with a history of depression and allergic rhinitis as well as hyperlipidemia: She underwent left cataract surgery today. The procedure occurred uneventfully. Intraoperatively she did receive Betadine drops lidocaine jelly lidocaine injection into the anterior chamber as well as Kenalog injection into the left eye. Postoperatively the patient was getting prepared to leave to go home from the perioperative area. Patient stood up to go home and reported she did not feel well. She then lost consciousness fell back and had stiffening of her arms per although she was on telemetry this was not documented a recorded. She did have a 12 lead EKG which was unremarkable. The patient received a CPR briefly after which she awoke and was more responsive. Blood pressure was within normal limits following. Heart rate was bradycardic at about 53. The patient was given IV hydration and arrangements were made for her to be admitted under observation to the medical floor. Patient was in the room and they were attempting orthostatic vital signs on her. She again complained of feeling nauseated. She then loss consciousness stiffened her arms and was briefly unresponsive. She quickly was able to regain consciousness. She was more significantly nauseated with 3 episodes of vomiting. Telemetry monitoring at that time confirmed heart rate of 27-29 during the event. Following that her heart rate improved significantly. The patient underwent a head CT given her history of seizures. The head CT was negative. She had a KUB of the abdomen which showed no evidence of bowel obstruction. She will be admitted under observation for further evaluation of what is deemed to be vasovagal syncope. Although the patient had some stiffening, there was no overt tonic-clonic activity noted, there was no tongue biting, or incontinence. Patient does have a remote history of seizure 20 years ago. She currently is not on any anticonvulsants. And per the patient she has never been treated with anticonvulsants. Discharge Providers Provider Date of admission: 07/07/20 10:30 Discharge Date: 07/08/20 Primary care physician: Britany Ohara MD Discharge provider: Della Unger DO Summary Hospital Course Discharge Diagnosis: 1. Acute syncope, present on admission. Resolved.? 2. Status post cataract surgery, present on admission. Active.? 3. Depression, chronic, present on admission. Stable.? 4. Allergic rhinitis, chronic, present on admission. Stable. Hospital Course: Maria T Gomez is a 75-year-old female with a past medical history significant for allergic rhinitis and depression who presented for elective cataract removal and had recurrent syncopal episodes with LOC and significant bradycardia therefore admitted for observation and IV fluid hydration.? 1. Acute syncope, present on admission. Resolved.? -Patient was admitted for?observation due to an episode of syncope with loss of consciousness and mild bradycardia HR 50's. She?received brief CPR due to inability to palpate pulse with quick return of consciousness. She had a recurrent episode of syncope with profound bradycardia HR 20-30's captured on telemetry when she arrived on the medical?floor. -Suspect secondary to dehydration and orthostatic hypotension. Patient reports significant caffeine intake (2 cups of coffee and 2 espresso shots per day) and alcohol use (3 glasses of wine a night). -Patient has no history of syncope or?known history of cardiac disease. -No obvious witnessed seizure activity. Patient does have a remote history?of seizure disorder 20 years ago and is not on any antiepileptics. -CT brain without contrast did not demonstrate any acute intracranial abnormalities.? -EKG demonstrated sinus rhythm with low voltage in precordial leads and left anterior fascicular?block without acute ischemic changes such as ST elevation or depression. Troponin negative < 0.012.? -Orthostatic vitals initially positive but orthostasis resolved with IV fluid hydration.? -Continued IV fluid hydration until adequately hydrated then discontinued.? -Ordered Zofran 4 mg every 8 hours as needed for nausea and acetaminophen 650 mg every 6 hours as needed for pain.? -Echocardiogram demonstrated?unremarkable -Admitting provider?discussed case with Dr. Beal cardiology who recommended continued observation and transfer to [facility] should the patient have another recurrent syncopal episode with associated bradycardia for possible pacemaker placement. Continued to monitor patient closely on telemetry. Patient remained in normal sinus rhythm with heart rate 60 to 70s (lowest heart rate high 50s while sleeping). -Recommended patient cut significantly back on alcohol and caffeine use. 2. Status post cataract surgery, present on admission. Active.? -Continued postoperative management per ophthalmology. 3. Depression, chronic, present on admission. Stable.? -Continued home sertraline 75 mg daily.? 4. Allergic rhinitis, chronic, present on admission. Stable. -Continued home cetirizine 10 mg daily.? Exam Vital Signs (past 8 hours): - 07/08/20 02:00 07/08/20 06:00 Temperature 97.9 F Pulse Rate 66 Pulse Rate [Orthostatic Lying] 66 Pulse Rate [Orthostatic Sitting] 69 Pulse Rate [Orthostatic Standing] 72 Respiratory Rate 18 Blood Pressure 135/70 Blood Pressure [Orthostatic Lying] 135/70 Blood Pressure [Orthostatic Sitting] 135/74 Blood Pressure [Orthostatic Standing] 127/61 Pulse Oximetry 95 97 Oxygen Delivery Method Room Air Oxygen Flow Rate 0 Narrative Exam Narrative: General: Elderly female sitting in bedside chair and in no acute distress, well-developed, well-nourished, appropriately interactive. HEENT: Normocephalic, atraumatic. External ears without defect. Pupils equal, round, and reactive to light. Anicteric sclerae, moist conjunctivae, and no lid lag. Oropharynx free of erythema and cobble stoning with moist mucosa. Neck: Supple with full range of motion. No jugular venous distension. No bruits. No lymphadenopathy or thyromegaly. Cardiovascular: Regular rate and rhythm without murmurs, rubs, or gallops apprec iated Pulmonary: Clear to auscultation bilaterally without crackles, wheezes, or rhonchi. Normal respiratory effort with no use of accessory muscles. Abdomen: Soft, bowel sounds present, nontender, nondistended. No hepatosplenomegaly or masses appreciated. Extremities: No clubbing, cyanosis, or edema. Skin: Normal temperature, turgor, and texture; no rash, ulcers, or subcutaneous nodules appreciated. Neurological: Cranial nerves grossly intact. Psychiatric: Normal mood and affect. Alert and oriented to person, place, and time. Objective Labs Result Diagrams: 07/07/20 08:53 07/07/20 08:53 Labs: Laboratory Results - last 24 hr 07/07/20 07/07/20 07/07/20 08:53 08:53 08:53 WBC 7.3 RBC 4.42 Hgb 13.1 Hct 39.2 MCV 88.7 MCH 29.6 MCHC 33.4 RDW 12.6 Plt Count 164 Total Counted 100 Seg Neutrophils % 49.0 Lymphocytes % (Manual) 29.0 Atypical Lymphs % 10.0 H Monocytes % (Manual) 8.0 Eosinophils % (Manual) 1.0 L Basophils % (Manual) 3.0 H Neutrophils # (Manual) 3577 RBC Morphology Normal morphology Sodium 136 L Potassium 3.9 Chloride 100 Carbon Dioxide 28 BUN 13 Creatinine 0.87 Estimated GFR > 60.0 BUN/Creatinine Ratio 14.9 Glucose 136 H Calcium 8.9 Magnesium 2.3 Total Bilirubin 0.5 AST 33 ALT 27 Alkaline Phosphatase 87 Total Creatine Kinase 61 CK-MB (CK-2) TNP CK-MB (CK-2) Rel Index TNP Troponin I < 0.012 Total Protein 6.8 Albumin 4.2 Globulin 2.6 Albumin/Globulin Ratio 1.6 Discharge Plan Discharge Plan Patient Disposition: Home Discharge comment: You are being discharged home. You had a to syncopal episodes likely due to dehydration. You had no evidence of seizure. Your heart rhythm and heart ultrasound were normal. Please try to stay well hydrated and drink plenty of fluids. Please cut back on alcohol use and caffeine significantly. You may take Tylenol or ibuprofen as needed for pain and as directed on bottle. Please follow-up with your primary care physician, Dr. Ohara, regarding your hospitalization. Please continue postoperative care as instructed by ophthalmology and follow-up with your bulb inspector as directed. Discharge orders & Medications Prescriptions: Continued cetirizine [Zyrtec] 10 mg Tablet 10 mg PO DAILY RF: 0 sertraline 25 mg tablet 75 mg PO DAILY RF: 0 Follow up/Referrals: Thanh Reese MD [Physician] - As previously scheduled Britany Ohara MD [Primary Care Provider] - 3-5 Days Diet/Activity/Treatments Diet: Diet as Tolerated and Regular Activity: Activity as tolerated Visit Report/Discharge Packet Instructions: DI for Syncope in Adults (Fainting), DI for Dehydration -- Adult Stand Alone Forms: Cataract Discharge Hugh, Surgery Discharge Visit Report Forms: Patient Portal/API, Stroke Signs & Symptoms Discharge Data Primary Care Provider: Britany Ohara Attending Provider: Magdalena Duque Admnapoleon Date/Time: 07/07/20 10:30
[2020-07-08 08:37] VITALS: BP 124/64; PULSE 72; RESP 20; TEMP 36.4; O2SAT 97
--- NOTE | 2020-07-08 10:27 | PC.NURSE ---
Assess- has discharged patient from the hospital, she will be taken down to office after she is discharged from here. She denies pain, syncopal episodes, dizziness, or passing out. Patient has not had any seizure activity this morning and is A&Ox3. She ate some breakfast and called her ride to come to the hospital.
== END 2020-07-08 11:38 | disposition home or self-care (01) ==
LOC: AC 10:40
PROVIDERS: Emergency Medicine; Internal Medicine; Ophthalmology; Admitting Provider Internal Medicine; PCP Student in an Organized Health Care Education/Training Program; Referring Provider Student in an Organized Health Care Education/Training Program; Visit Provider Internal Medicine
PROC: (CPT 66984; principal; 2020-07-07 07:45)
DX: H25.12 Age-related nuclear cataract, left eye (principal); F41.9 Anxiety disorder, unspecified; F32.9 Major depressive disorder, single episode, unspecified; J30.9 Allergic rhinitis, unspecified; R55 Syncope and collapse
CPT/HCPCS: 66984; 70450; 71045; 74018; 80053; 82550; 82962; 83735; 84484; 85025; 92950; 93005; 93010; 93306; G0378; J0171; J2060; J2250; J2405; J3010; J3301

== ENCOUNTER → 2021-01-06 10:27 | Outpatient (CLI) | payer MEDICARE, OTHER, SELFPAY ==
[2020-07-07 10:44] VITALS: BMI 22.4
[2021-01-06] MEDS: COVID-19 VACC #1, MRNA(MOD) 100 MCG/0.5 ML VIAL IM (10:49)
== END ==
PROVIDERS: PCP Student in an Organized Health Care Education/Training Program; Visit Provider Internal Medicine
DX: Z23 Encounter for immunization (principal)
CPT/HCPCS: 0011A; 91301

== ENCOUNTER → 2021-02-03 09:32 | Outpatient (CLI) | payer MEDICARE, OTHER, SELFPAY ==
[2020-07-07 10:44] VITALS: BMI 22.4
[2021-02-03] MEDS: COVID-19 VACC #2, MRNA(MOD) 100 MCG/0.5 ML VIAL IM (09:53)
== END ==
PROVIDERS: PCP Student in an Organized Health Care Education/Training Program; Visit Provider Internal Medicine
DX: Z23 Encounter for immunization (principal)
CPT/HCPCS: 0012A; 91301

== ENCOUNTER → 2021-03-04 11:08 | Outpatient (CLI) | payer MEDICARE, OTHER, SELFPAY ==
[2020-07-07 10:44] VITALS: BMI 22.4
--- NOTE | 2021-03-04 11:11 | DI.RAD.S_ITS ---
PROCEDURE: XR KNEE RT 3V INDICATIONS: RT KNEE PAIN TECHNIQUE: 3 views of the knee were acquired. COMPARISON: [facility], , KNEE 3V RIGHT, 01/19/2018, 9:54. FINDINGS: Bones: No fractures or dislocations. No suspicious bony lesions. Severe medial compartment joint space narrowing with small marginal osteophyte. Lateral patellofemoral joint space narrowing with small marginal osteophyte is well. Soft tissues: No radiopaque foreign body. 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 on 03/04/2021 at 14:12 Approved by: Bean Villa M.D. on 03/04/2021 at 14:14
== END ==
PROVIDERS: PCP Student in an Organized Health Care Education/Training Program; Referring Provider Student in an Organized Health Care Education/Training Program; Visit Provider Student in an Organized Health Care Education/Training Program
DX: M25.561 Pain in right knee (principal); M17.11 Unilateral primary osteoarthritis, right knee
CPT/HCPCS: 73562

== ENCOUNTER 2021-06-04 16:24 | Emergency (ER) | payer MEDICARE, OTHER, SELFPAY ==
[2020-07-07 10:44] VITALS: BMI 22.4
[2021-06-04 16:33] VITALS: BP 157/77; PULSE 100; RESP 15; O2SAT 97; BMI 21.4
[2021-06-04] MEDS: TET,DIPH,PERTUSS(ACELL),VAC/PF 0.5 ML SYRINGE IM (21:39)
--- NOTE | 2021-06-04 22:00 | PC.NURSE ---
She struck metal sculpture with right lower leg,came with bandage in place that is slean and dry,distal cms intact.
--- NOTE | 2021-06-04 22:59 | ED.WOUNDLAC ---
HPI - Wound/Laceration General Chief Complaint: Wound/Laceration Stated Complaint: LACERATION OF RIGHT LEG Time Seen by Provider: 06/04/21 22:48 Source: patient Mode of arrival: Ambulatory Limitations: no limitations History of Present Illness HPI narrative: Patient is a 68-year-old female who presents with right leg laceration. She states that she was walking to her friend's garden is when she really she cut her leg. She is not on blood thinners. Is using. No numbness or tingling or weakness Related Data Home Medications Medication Instructions Recorded Confirmed cetirizine 10 mg tablet (Zyrtec) 10 mg PO DAILY 06/02/20 07/07/20 sertraline 25 mg tablet 75 mg PO DAILY 06/02/20 07/07/20 Allergies Allergy/AdvReac Type Severity Reaction Status Date / Time codeine Allergy Verified 06/04/21 16:33 Review of Systems Review of Systems Narrative: GENERAL: Denies chills,fever HEENT: Denies throat pain RESPIRATORY: Denies dyspnea, cough, wheezing CARDIOVASCULAR: Denies chest pain, palpitations GASTROINTESTINAL: Denies nausea, vomiting MUSCULOSKELETAL: Denies extremity pain, injury SKIN: See HPI NEUROLOGIC: Denies weakness, dizziness, headache, numbness 8 point review of systems is negative except for those stated above and HPI Patient History Medical History Acute bacterial bronchitis Allergic rhinitis Endometrial cancer Seizure Social History household members: none Smoking Status: Former smoker Smoking Status: Former smoker alcohol intake frequency: 3 or more drinks per day Alcohol type: wine Substance Use Type: does not use Exam Initial Vital Signs Initial Vital Signs: Vital Signs Pulse Rate 100 H 06/04/21 16:33 Respiratory Rate 15 06/04/21 16:33 Blood Pressure 157/77 H 06/04/21 16:33 Pulse Oximetry 97 06/04/21 16:33 GENERAL: Pleasant very patient 76-year-old female CARDIOVASCULAR: peripheral pulses in tact, cap refill <2 sec RESPIRATORY: No respiratory distress, speaks in full sentences without difficulty EXTREMITIES: Normal range of motion, no clubbing or edema. Neurovascularly intact NEUROLOGICAL: Cranial nerves II through XII grossly intact. Normal gait and speech. SKIN: Right leg laceration 5.5 cm good skin approximation Procedures Laceration Repair Laceration 1: Site: lower extremity Side (If applicable): right Size (cm): 5.5 Description: linear Depth: simple, single layer Local Anesthetic: lidocaine 1% and with bicarb Pre-repair: wound explored, irrigated extensively and deep structures intact Skin layer closed with: nylon Size (cm): 4-0 Number of sutures: 7 Course Orders Ordered: Discontinued Medications Bacitracin (Bacitracin Oint 0.9 Gm Pckt) 1 applic TOP NOW ONE Stop: 06/04/21 23:39 Last Admin: 06/04/21 23:51 Dose: 1 applic Documented by: SOSA Diphtheria/Tetanus/Acell Pertussis (Tet,Diph,Pertuss(Acell),Vac/Pf 0.5 Ml Syringe) 0.5 ml IM .ONCE ONE Stop: 06/04/21 21:33 Last Admin: 06/04/21 21:39 Dose: 0.5 ml Documented by: SOSA Lidocaine/Sodium Bicarbonate (Lido 1%/Sod Bicarb 8.4% (10ml) 10 Ml Syringe) 10 ml INJ NOW ONE Stop: 06/04/21 23:10 Last Admin: 06/04/21 23:20 Dose: 10 ml Documented by: SOSA Vital Signs Vital signs: Vital Signs - 8 hr 06/04/21 23:52 Pulse Rate 72 Respiratory Rate 18 Blood Pressure 170/80 H Pulse Oximetry 99 Discharge Plan Departure Patient Disposition: Home Clinical Impression: Laceration of right lower extremity Qualifiers: Encounter type: initial encounter Qualified Code(s): S81.811A - Laceration without foreign body, right lower leg, initial encounter Instructions: DI for Laceration Repair Activity Restrictions/Additional Instructions: 1. Have your suture removed in 5-7 days, you may go to walk-in clinic, return to the ER or call your primary care physician. 2. No soaking in water including dishes, bathtubs, Lakes, swimming pools etc 3. Signs of infection include, but not limited to, increased redness, increased swelling, increased pain, fever and purulent drainage, if the symptoms should arise, you may need an antibiotic and you should have a reevaluation either by your primary care provider or by the emergency department. Prescriptions: No Action cetirizine [Zyrtec] 10 mg Tablet 10 mg PO DAILY RF: 0 sertraline 25 mg tablet 75 mg PO DAILY RF: 0 Referrals: Britany Ohara MD [Primary Care Provider] -
[2021-06-04] MEDS: LIDO 1%/SOD BICARB 8.4% (10ML) 10 ML SYRINGE INJ (23:20)
[2021-06-04] MEDS: BACITRACIN OINT 0.9 GM PCKT 1 APPLIC TOP (23:51)
[2021-06-04 23:52] VITALS: BP 170/80; PULSE 72; RESP 18; O2SAT 99
== END 2021-06-04 23:52 | disposition home or self-care (01) ==
PROVIDERS: Emergency Provider Emergency Medicine; PCP Student in an Organized Health Care Education/Training Program
DX: S81.811A Laceration without foreign body, right lower leg, initial encounter (principal); W45.8XXA Other foreign body or object entering through skin, initial encounter; Z23 Encounter for immunization
CPT/HCPCS: 12032; 90471; 99283; 90715

== ENCOUNTER → 2021-06-25 11:13 | Outpatient (CLI) | payer MEDICARE, OTHER, SELFPAY ==
[2020-07-07 10:44] VITALS: BMI 22.4
--- NOTE | 2021-06-25 | DI.MG.S_ITS ---
BILATERAL DIGITAL SCREENING MAMMOGRAM 3D/2D WITH CAD: 06/25/2021 CLINICAL: Routine screening. Family history of breast cancer. Comparison is made to exams dated: 05/05/2020 mammogram, 02/18/2019 mammogram - [facility], and 12/26/2017 mammogram - [facility]. There are scattered fibroglandular elements in both breasts. Current study was also evaluated with a Computer Aided Detection (CAD) system. No significant masses, calcifications, or other findings are seen in either breast. There has been no significant interval change. IMPRESSION: NEGATIVE There is no mammographic evidence of malignancy. A 1 year screening mammogram is recommended. This exam was interpreted at Station ID: [id number]. NOTE: For mammograms, a report in lay terms will be sent to the patient. Approximately 15% of breast malignancies will not be visualized mammographically. In the management of a palpable breast mass, a negative mammogram must not discourage biopsy of a clinically suspicious lesion. Electronically Signed By: Rody livingston/cassandra:06/25/2021 17:15:37 letter sent: Normal Exam ACR BI-RADS Category 1: Negative 3341F
== END ==
PROVIDERS: PCP Student in an Organized Health Care Education/Training Program; Referring Provider Student in an Organized Health Care Education/Training Program; Visit Provider Student in an Organized Health Care Education/Training Program
DX: Z12.31 Encounter for screening mammogram for malignant neoplasm of breast (principal); Z80.3 Family history of malignant neoplasm of breast
CPT/HCPCS: 77063; 77067

== ENCOUNTER → 2021-07-15 12:32 | Outpatient (CLI) | payer MEDICARE, OTHER, SELFPAY ==
[2020-07-07 10:44] VITALS: BMI 22.4
--- NOTE | 2021-07-15 | DI.RAD.S_ITS ---
PROCEDURE: XR DEXA AXIAL SKELETON INDICATIONS: Asymptomatic menopausal state COMPARISON: None. FINDINGS: This blank DEXA report has been sent in error by the PACS system. The correct and complete report will be forthcoming in 1-2 days. Thank you for your patience and understanding. Dictated by: Gonzalez Macdonald M.D. on 07/15/2021 at 13:53 Approved by: Gonzalez Macdonald M.D. on 07/15/2021 at 13:54
== END ==
PROVIDERS: PCP Student in an Organized Health Care Education/Training Program; Referring Provider Student in an Organized Health Care Education/Training Program; Visit Provider Student in an Organized Health Care Education/Training Program
DX: Z78.0 Asymptomatic menopausal state (principal); M85.88 Other specified disorders of bone density and structure, other site; M85.851 Other specified disorders of bone density and structure, right thigh
CPT/HCPCS: 77080

== ENCOUNTER → 2022-07-07 12:32 | Outpatient (CLI) | payer MEDICARE, OTHER, SELFPAY ==
[2020-07-07 10:44] VITALS: BMI 22.4
--- NOTE | 2022-07-07 12:34 | DI.MG.S_ITS ---
BILATERAL DIGITAL SCREENING MAMMOGRAM 3D/2D WITH CAD: 07/07/2022 CLINICAL: Routine screening. Family history of breast cancer. Comparison is made to exams dated: 06/25/2021 mammogram, 05/05/2020 mammogram, and 02/18/2019 mammogram - [facility]. There are scattered areas of fibroglandular density in both breasts (category b / 25%-50% glandular tissue). Current study was also evaluated with a Computer Aided Detection (CAD) system. No significant masses, calcifications, or other findings are seen in either breast. There has been no significant interval change. IMPRESSION: NEGATIVE There is no mammographic evidence of malignancy. A 1 year screening mammogram is recommended. Based on the Tyrer Cuzick model (a risk assessment model) the patient's lifetime risk is 2.7% and her 10 year risk is 0.0%. According to the ACR, ACS, and NCCN guidelines, an annual breast MRI exam along with mammogram is recommended if the patient's lifetime risk is 20% or greater. This exam was interpreted at Station ID: [id number]. NOTE: For mammograms, a report in lay terms will be sent to the patient. Approximately 15% of breast malignancies will not be visualized mammographically. In the management of a palpable breast mass, a negative mammogram must not discourage biopsy of a clinically suspicious lesion. Electronically Signed By: Grayson garnett/cassandra:07/07/2022 16:57:21 letter sent: Normal Exam ACR BI-RADS Category 1: Negative [id number]
== END ==
PROVIDERS: PCP Family Medicine; Referring Provider Family Medicine; Visit Provider Family Medicine
DX: Z12.31 Encounter for screening mammogram for malignant neoplasm of breast (principal); Z80.3 Family history of malignant neoplasm of breast
CPT/HCPCS: 77063; 77067

== ENCOUNTER → 2023-07-21 12:56 | Outpatient (CLI) | payer MEDICARE, OTHER, SELFPAY ==
[2020-07-07 10:44] VITALS: BMI 22.4
--- NOTE | 2023-07-21 | DI.MG.S_ITS ---
BILATERAL DIGITAL SCREENING MAMMOGRAM 3D/2D WITH CAD: 07/21/2023 CLINICAL: Routine screening. Family history of breast cancer. Comparison is made to exams dated: 07/07/2022 mammogram, 06/25/2021 mammogram, 05/05/2020 mammogram, and 02/18/2019 mammogram - [facility]. There are scattered areas of fibroglandular density in both breasts (category b / 25%-50% glandular tissue). Current study was also evaluated with a Computer Aided Detection (CAD) system. No significant masses, calcifications, or other findings are seen in either breast. There has been no significant interval change. IMPRESSION: NEGATIVE There is no mammographic evidence of malignancy. A 1 year screening mammogram is recommended. Based on the Tyrer Cuzick model (a risk assessment model) the patient's lifetime risk is 2.3% and her 10 year risk is 0.0%. According to the ACR, ACS, and NCCN guidelines, an annual breast MRI exam along with mammogram is recommended if the patient's lifetime risk is 20% or greater. This exam was interpreted at Station ID: [id number]. NOTE: For mammograms, a report in lay terms will be sent to the patient. Approximately 15% of breast malignancies will not be visualized mammographically. In the management of a palpable breast mass, a negative mammogram must not discourage biopsy of a clinically suspicious lesion. Electronically Signed By: Daniel diaz/cassandra:07/21/2023 16:29:12 letter sent: Normal Exam ACR BI-RADS Category 1: Negative [id number]
== END ==
PROVIDERS: PCP Family Medicine; Referring Provider Family Medicine; Visit Provider Family Medicine
DX: Z12.31 Encounter for screening mammogram for malignant neoplasm of breast (principal); Z80.3 Family history of malignant neoplasm of breast
CPT/HCPCS: 77063; 77067

== ENCOUNTER → 2023-08-10 14:05 | Outpatient (CLI) | payer MEDICARE, OTHER, SELFPAY ==
[2020-07-07 10:44] VITALS: BMI 22.4
--- NOTE | 2023-08-10 | DI.RAD.S_ITS ---
PROCEDURE: XR CHEST 2V INDICATIONS: SOB TECHNIQUE: 2 views of the chest were acquired. COMPARISON: [facility], CR, XR CHEST 2V, 05/28/2019, 11:33. FINDINGS: Surgical changes and devices: None. Lungs and pleura: Lungs are clear. No pleural effusions or pneumothorax. Mediastinum: Mediastinal contours are normal. Heart size is normal. Bones and chest wall: No suspicious bony abnormalities. Soft tissues appear unremarkable. IMPRESSION: No acute cardiopulmonary abnormality is seen. Dictated by: Milly Tierney MD, PhD on 08/10/2023 at 14:23 Approved by: Milly Tierney MD, PhD on 08/10/2023 at 14:24
== END ==
PROVIDERS: PCP Family Medicine; Referring Provider Family Medicine; Visit Provider Family Medicine
DX: R06.02 Shortness of breath (principal)
CPT/HCPCS: 71046

== ENCOUNTER → 2024-04-03 11:43 | Outpatient (CLI) | payer MEDICARE, OTHER, SELFPAY ==
[2020-07-07 10:44] VITALS: BMI 22.4
--- NOTE | 2024-04-03 11:47 | DI.RAD.S_ITS ---
PROCEDURE: XR CHEST 2V INDICATIONS: COUGH TECHNIQUE: 2 views of the chest were acquired. COMPARISON: [facility], CR, XR CHEST 2V, 08/10/2023, 14:13. FINDINGS: Surgical changes and devices: None. Lungs and pleura: Lungs are clear. No pleural effusions or pneumothorax. Mediastinum: Mediastinal contours are normal. Heart size is normal. Bones and chest wall: No suspicious bony abnormalities. Soft tissues appear unremarkable. IMPRESSION: No acute pulmonary process. Dictated by: Angle Chan M.D. on 04/03/2024 at 13:52 Approved by: Angle Chan M.D. on 04/03/2024 at 13:52
== END ==
PROVIDERS: PCP Family Medicine; Referring Provider Internal Medicine; Visit Provider Internal Medicine
DX: R05.1 Acute cough (principal)
CPT/HCPCS: 71046

== ENCOUNTER 2025-07-03 21:08 | Observation (INO) | payer MEDICARE, OTHER, SELFPAY ==
[2020-07-07 10:44] VITALS: BMI 22.4
[2025-07-03 21:11] VITALS: BP 143/81; PULSE 67; RESP 16; TEMP 36.3; O2SAT 97; BMI 24.3
[2025-07-03] MEDS: ONDANSETRON 4 MG/2 ML INJ IV (21:30)
[2025-07-03 21:55] VITALS: PULSE 81
[2025-07-03 22:00] VITALS: BP 142/72; PULSE 62; O2SAT 90
[2025-07-03 22:30] VITALS: BP 128/74; PULSE 73; O2SAT 96
--- NOTE | 2025-07-03 22:45 | ED_ITS ---
HPI - Fall <Kin Flynn MD - Last Filed: 07/04/25 18:00> General Chief Complaint: Fall Stated Complaint: Fall Time Seen by Provider: 07/03/25 21:15 Mode of arrival: EMS History of Present Illness HPI Narrative: 80-year-old female had dinner at the [place], was walking across the floor after dinner, then woke up on the ground, had struck the back of her head, does not recall the event, does not recall having any preceding palpitations or heart racing sensation, no preceding shortness of breath or chest pain. No shaking or seizures known. No incontinence of urine or stool. She has pain of the back of her head where she sustained a laceration, no pain to anterior face. Has right thumb area pain and swelling. No other injuries. She would not take blood thinner medications. No nausea or vomiting. No focal weakness to face arm or leg. No focal numbness to face arm or leg. Related Data Home Medications ?Medication ?Instructions ?Recorded ?Confirmed cetirizine 10 mg tablet (Zyrtec) 10 mg PO DAILY 07/07/20 sertraline 25 mg tablet 75 mg PO DAILY 06/02/2006/23 Allergies Allergy/AdvReac Type Severity Reaction Status Date / Time codeine Allergy Verified 06/04/21 16:33 Patient History <Kin Flynn MD - Last Filed: 07/04/25 18:00> Medical History Acute bacterial bronchitis Allergic rhinitis Endometrial cancer Seizure Social History household members: none Smoking Status: Former smoker alcohol intake: current alcohol intake frequency: 3 or more drinks per day Alcohol type: wine Exam <Kin Flynn MD - Last Filed: 07/04/25 18:00> Narrative Exam Narrative: GENERAL: Well-developed patient, in mild distress. HEAD: Dried blood posterior scalp, once cleaned there seems to be no suturable lesion, small mid position occipital abrasion. Antibiotic ointment applied. EYES: Pupils equal round and reactive. Extraocular motions intact. No scleral icterus. No injection or drainage. ENT: Nose without bleeding, purulent drainage. Throat without erythema, tonsillar hypertrophy or exudate. Airway patent. NECK: Trachea midline. Non tender CARDIOVASCULAR: Regular rate and rhythm without murmurs, gallops, or rubs. RESPIRATORY: Clear to auscultation. Breath sounds equal bilaterally. No wheezes, rales, or rhonchi. GASTROINTESTINAL: Abdomen soft, non-tender, nondistended. EXTREMITIES: Right hand with some thenar eminence swelling and slight ecchymoses, no gross deformity. No other extremity injuries obvious. BACK: Nontender without deformity or crepitance. No flank tenderness. NEURO: AOx3. Motor functions grossly nonfocal. SKIN: No rash or erythema of visible areas Initial Vital Signs Initial Vital Signs: Vital Signs Temperature 97.3 F L 07/03/25 21:11 Pulse Rate 67 07/03/25 21:11 Respiratory Rate 16 07/03/25 21:11 Blood Pressure 143/81 H 07/03/25 21:11 Pulse Oximetry 97 07/03/25 21:11 Oxygen Delivery Method Room Air 07/03/25 21:11 <Marcel Rapp MD - Last Filed: 07/04/25 08:44> Initial Vital Signs Initial Vital Signs: Vital Signs Temperature 97.3 F L 07/03/25 21:11 Pulse Rate 67 07/03/25 21:11 Respiratory Rate 16 07/03/25 21:11 Blood Pressure 143/81 H 07/03/25 21:11 Pulse Oximetry 97 07/03/25 21:11 Oxygen Delivery Method Room Air 07/03/25 21:11 Course <Kin Flynn MD - Last Filed: 07/04/25 18:00> Orders Ordered: Docusate Sodium (Docusate 100 Mg Capsule) 100 mg PO BID [facility] Enoxaparin Sodium (Enoxaparin 40 Mg/0.4 Ml Syringe) 40 mg SUBCUT DAILY ALEX Loratadine (Loratadine 10 Mg Tablet) 10 mg PO DAILY ALEX Naloxone HCl (Naloxone 0.4 Mg/Ml Vial) 0.2 mg IV Q2MIN PRN PRN Reason: Opiate Reversal Ondansetron HCl (Ondansetron 4 Mg/2 Ml Inj) 4 mg IV Q8HR PRN PRN Reason: Nausea And Vomiting Ondansetron HCl (Ondansetron 4 Mg Odt) 4 mg PO Q8HR PRN PRN Reason: Nausea And Vomiting Sertraline HCl (Sertraline 50 Mg Tablet) 100 mg PO BEDTIME ALEX Discontinued Medications Acetaminophen (Acetaminophen 325 Mg Tablet) 650 mg PO NOW ONE Stop: 07/04/25 08:06 Last Admin: 07/04/25 08:51 Dose: Not Given Documented By: BOSTON Bacitracin (Bacitracin Oint 0.9 Gm Pckt) 1 applic TOP NOW ONE Stop: 07/04/25 03:29 Last Admin: 07/04/25 08:05 Dose: Not Given Documented By: BOSTON Diphenhydramine HCl (Diphenhydramine 50 Mg/Ml Vial) 25 mg IV NOW ONE Stop: 07/04/25 02:07 Last Admin: 07/04/25 02:15 Dose: 25 mg Documented By: FUENTES Sodium Chloride (Normal Saline 0.9%) 1,000 mls @ 1,000 mls/hr IV BOLUS ONE Stop: 07/04/25 05:09 Last Infusion: 07/04/25 05:25 Dose: Infused Documented By: Admin: 07/04/25 04:10 Dose: 1,000 mls/hr Documented By: FUENTES Metoclopramide HCl (Metoclopramide 10 Mg/2 Ml Inj) 10 mg IV NOW ONE Stop: 07/04/25 02:07 Last Admin: 07/04/25 02:15 Dose: 10 mg Documented By: FUENTES Ondansetron HCl (Ondansetron 4 Mg/2 Ml Inj) 4 mg IV NOW ONE Stop: 07/03/25 21:25 Last Admin: 07/03/25 21:30 Dose: 4 mg Documented By: FUENTES Ondansetron HCl (Ondansetron 4 Mg Odt) 4 mg SL NOW ONE Stop: 07/04/25 08:06 Last Admin: 07/04/25 08:08 Dose: 4 mg Documented By: BOSTON Vital Signs Vital signs: Vital Signs - 8 hr 07/04/25 01:00 07/04/25 01:04 07/04/25 01:04 Pulse Rate 76 75 Blood Pressure 171/74 H Pulse Oximetry 91 98 07/04/25 01:30 07/04/25 01:31 07/04/25 01:31 Pulse Rate 75 Blood Pressure 150/67 H Pulse Oximetry 95 98 07/04/25 02:00 07/04/25 02:30 07/04/25 03:00 Pulse Rate 75 75 78 Blood Pressure Pulse Oximetry 98 98 94 07/04/25 03:31 07/04/25 03:31 07/04/25 04:00 Pulse Rate 81 70 Blood Pressure 152/69 H Pulse Oximetry 97 98 07/04/25 04:32 07/04/25 05:00 07/04/25 08:14 Pulse Rate 73 67 Blood Pressure Pulse Oximetry 98 96 97 07/04/25 08:15 07/04/25 08:15 Pulse Rate 67 Blood Pressure 153/71 H Pulse Oximetry 97 <Marcel Rapp MD - Last Filed: 07/04/25 08:44> Orders Ordered: Docusate Sodium (Docusate 100 Mg Capsule) 100 mg PO BID ALEX Enoxaparin Sodium (Enoxaparin 40 Mg/0.4 Ml Syringe) 40 mg SUBCUT DAILY ALEX Loratadine (Loratadine 10 Mg Tablet) 10 mg PO DAILY ALEX Naloxone HCl (Naloxone 0.4 Mg/Ml Vial) 0.2 mg IV Q2MIN PRN PRN Reason: Opiate Reversal Ondansetron HCl (Ondansetron 4 Mg/2 Ml Inj) 4 mg IV Q8HR PRN PRN Reason: Nausea And Vomiting Ondansetron HCl (Ondansetron 4 Mg Odt) 4 mg PO Q8HR PRN PRN Reason: Nausea And Vomiting Sertraline HCl (Sertraline 50 Mg Tablet) 100 mg PO BEDTIME ALEX Discontinued Medications Acetaminophen (Acetaminophen 325 Mg Tablet) 650 mg PO NOW ONE Stop: 07/04/25 08:06 Last Admin: 07/04/25 08:51 Dose: Not Given Documented By: BOSTON Bacitracin (Bacitracin Oint 0.9 Gm Pckt) 1 applic TOP NOW ONE Stop: 07/04/25 03:29 Last Admin: 07/04/25 08:05 Dose: Not Given Documented By: BOSTON Diphenhydramine HCl (Diphenhydramine 50 Mg/Ml Vial) 25 mg IV NOW ONE Stop: 07/04/25 02:07 Last Admin: 07/04/25 02:15 Dose: 25 mg Documented By: FUENTES Sodium Chloride (Normal Saline 0.9%) 1,000 mls @ 1,000 mls/hr IV BOLUS ONE Stop: 07/04/25 05:09 Last Infusion: 07/04/25 05:25 Dose: Infused Documented By: Admin: 07/04/25 04:10 Dose: 1,000 mls/hr Documented By: FUENTES Metoclopramide HCl (Metoclopramide 10 Mg/2 Ml Inj) 10 mg IV NOW ONE Stop: 07/04/25 02:07 Last Admin: 07/04/25 02:15 Dose: 10 mg Documented By: FUENTES Ondansetron HCl (Ondansetron 4 Mg/2 Ml Inj) 4 mg IV NOW ONE Stop: 07/03/25 21:25 Last Admin: 07/03/25 21:30 Dose: 4 mg Documented By: FUENTES Ondansetron HCl (Ondansetron 4 Mg Odt) 4 mg SL NOW ONE Stop: 07/04/25 08:06 Last Admin: 07/04/25 08:08 Dose: 4 mg Documented By: BOSTON Reevaluation(s) Reevaluation #1: At 8:30 a.m., patient is waiting for discharge however reports disabling dizziness and nausea when she attempts to sit up or stand. She has received Zofran twice as well as Reglan. I am going to explore admission for concussion. Patient states that she lives alone Consultations Consultation #1: Case discussed with Dr. Cox, will admit to observation Vital Signs Vital signs: Vital Signs - 8 hr 07/04/25 01:00 07/04/25 01:04 07/04/25 01:04 Pulse Rate 76 75 Blood Pressure 171/74 H Pulse Oximetry 91 98 07/04/25 01:30 07/04/25 01:31 07/04/25 01:31 Pulse Rate 75 Blood Pressure 150/67 H Pulse Oximetry 95 98 07/04/25 02:00 07/04/25 02:30 07/04/25 03:00 Pulse Rate 75 75 78 Blood Pressure Pulse Oximetry 98 98 94 07/04/25 03:31 07/04/25 03:31 07/04/25 04:00 Pulse Rate 81 70 Blood Pressure 152/69 H Pulse Oximetry 97 98 07/04/25 04:32 07/04/25 05:00 07/04/25 08:14 Pulse Rate 73 67 Blood Pressure Pulse Oximetry 98 96 97 07/04/25 08:15 07/04/25 08:15 Pulse Rate 67 Blood Pressure 153/71 H Pulse Oximetry 97 [facility] - Fall <Kin Flynn MD - Last Filed: 07/04/25 18:00> Lab Data 07/03/25 21:12 07/03/25 21:12 Labs: Lab Results 07/03/25 07/04/25 07/04/25 Range/Units 21:12 00:58 02:18 WBC 8.4 (4.5-11.0) X10^3/uL RBC 4.65 (4.0-5.2) X10^6/uL Hgb 13.7 (12.0-16.0) g/dL Hct 40.7 (36-46) % MCV 87.7 (80-100) fL MCH 29.4 (26-34) PG MCHC 33.5 (30-36) % RDW 14.0 (11.6-14.8) % Plt Count 195 (150-400) X10^3/uL Neut % (Auto) 48.1 L (50-75) % Lymph % (Auto) 42.5 H (25-40) % [place] % (Auto) 5.4 (3-14) % Eos % (Auto) 1.6 L (2-4) % Baso % (Auto) 2.4 H (0-2) % Neut # (Auto) 4000 (6926-8237) /uL Lymph # (Auto) 3600 (3928-9079) /uL [place] # (Auto) 500 (0-900) /uL Eos # (Auto) 100 (0-450) /uL Baso # (Auto) 200 H (0-100) /uL Sodium 137 (137-145) mmol/L Potassium 4.2 (3.4-5.1) mmol/L Chloride 102 (98-107) mmol/L Carbon Dioxide 20 L (22-32) mmol/L BUN 15 (7-17) mg/dL Creatinine 0.79 (0.52-1.04) mg/dL Estimated GFR > 60 (>60) mL/min BUN/Creatinine Ratio 19.0 (6-22) Glucose 107 H (70-99) mg/dL Calcium 9.2 (8.4-10.2) mg/dL Total Bilirubin 0.6 (0.2-1.3) mg/dL AST 38 H (14-36) IU/L ALT 26 (<35) IU/L Alkaline Phosphatase 77 (38-126) U/L Total Creatine Kinase 90 (30-135) U/L Troponin I 0.014 0.024 < 0.012 (0.01-0.034) ng/mL Total Protein 7.9 (6.3-8.2) g/dL Albumin 5.0 (3.5-5.0) g/dL Globulin 2.9 (1.7-4.1) g/dL Albumin/Globulin Ratio 1.7 (1.0-2.8) Lipase 131 (23-300) U/L MDM Narrative Medical decision making narrative: 80-year-old female had syncopal episode walking across flat surface after eating dinner, no preceding chest abdomen pain palpitations heart racing or shortness of breath shaking episodes recalled. Sustained posterior occipital laceration to the scalp, and right-sided thumb pain with slight swelling. No other injuries. Unclear etiology of her syncopal episode. EKG, chest x-ray, labs pending. X-ray right thumb. CT head noncontrast scan. Keep NPO. Right hand x-ray series, no obvious fracture, consider dedicated imaging for carpal bone imaging per Radiology report. See tele radiology report. Right wrist x-ray series with scaphoid view, no obvious fractures. See tele radiology report. Placed in can-holding like position right thumb spica splinting. Patient thinks she can go home, trial of ambulation. FU with PCP advised, discussed concussion closed head injury precautions, if ambulation trial successful. Signed out to Dr Rapp. Dr Rapp note: CT is negative for acute intracranial injury, mental status is intact with GCS of 15. She continues to have disabling nausea consistent with a concussion. Antiemetics were not effective. I do not believe that she would be a safe discharge to home to live independently at this time patient in agreement. She will be admitted to her primary care service on observation. <Marcel Rapp MD - Last Filed: 07/04/25 08:44> Lab Data Labs: Lab Results 07/03/25 07/04/25 07/04/25 Range/Units 21:12 00:58 02:18 WBC 8.4 (4.5-11.0) X10^3/uL RBC 4.65 (4.0-5.2) X10^6/uL Hgb 13.7 (12.0-16.0) g/dL Hct 40.7 (36-46) % MCV 87.7 (80-100) fL MCH 29.4 (26-34) PG MCHC 33.5 (30-36) % RDW 14.0 (11.6-14.8) % Plt Count 195 (150-400) X10^3/uL Neut % (Auto) 48.1 L (50-75) % Lymph % (Auto) 42.5 H (25-40) % [place] % (Auto) 5.4 (3-14) % Eos % (Auto) 1.6 L (2-4) % Baso % (Auto) 2.4 H (0-2) % Neut # (Auto) 4000 (8903-1577) /uL Lymph # (Auto) 3600 (3134-1380) /uL [place] # (Auto) 500 (0-900) /uL Eos # (Auto) 100 (0-450) /uL Baso # (Auto) 200 H (0-100) /uL Sodium 137 (137-145) mmol/L Potassium 4.2 (3.4-5.1) mmol/L Chloride 102 (98-107) mmol/L Carbon Dioxide 20 L (22-32) mmol/L BUN 15 (7-17) mg/dL Creatinine 0.79 (0.52-1.04) mg/dL Estimated GFR > 60 (>60) mL/min BUN/Creatinine Ratio 19.0 (6-22) Glucose 107 H (70-99) mg/dL Calcium 9.2 (8.4-10.2) mg/dL Total Bilirubin 0.6 (0.2-1.3) mg/dL AST 38 H (14-36) IU/L ALT 26 (<35) IU/L Alkaline Phosphatase 77 (38-126) U/L Total Creatine Kinase 90 (30-135) U/L Troponin I 0.014 0.024 < 0.012 (0.01-0.034) ng/mL Total Protein 7.9 (6.3-8.2) g/dL Albumin 5.0 (3.5-5.0) g/dL Globulin 2.9 (1.7-4.1) g/dL Albumin/Globulin Ratio 1.7 (1.0-2.8) Lipase 131 (23-300) U/L ECG Data Attestation: I personally reviewed and interpreted this ECG as follows: (Normal sinus rhythm at [address] segment changes poor R-wave progression, left anterior fascicular block) MDM Narrative Medical decision making narrative: 80-year-old female had syncopal episode walking across flat surface after eating dinner, no preceding chest abdomen pain palpitations heart racing or shortness of breath shaking episodes recalled. Sustained posterior occipital laceration to the scalp, and right-sided thumb pain with slight swelling. No other injuries. Unclear etiology of her syncopal episode. EKG, chest x-ray, labs pending. X-ray right thumb. CT head noncontrast scan. Keep NPO. Right hand x-ray series, no obvious fracture, consider dedicated imaging for carpal bone imaging per Radiology report. See tele radiology report. Right wrist x-ray series with scaphoid view, no obvious fractures. See tele radiology report. Placed in can holding like position right thumb spica splinting. CT is negative for acute intracranial injury, mental status is intact with GCS of 15. She continues to have disabling nausea consistent with a concussion. Antiemetics were not effective. I do not believe that she would be a safe discharge to home to live independently at this time patient in agreement. She will be admitted to her primary care service on observation. Discharge Plan Departure Patient Disposition: Admitted as Observation Clinical Impression: Contusion of scalp Qualifiers: Encounter type: initial encounter Qualified Code(s): S00.03XA - Contusion of scalp, initial encounter Abrasion of scalp Qualifiers: Encounter type: initial encounter Qualified Code(s): S00.01XA - Abrasion of scalp, initial encounter Contusion of right thumb Qualifiers: Encounter type: initial encounter Damage to nail status: without damage Q ualified Code(s): S60.011A - Contusion of right thumb without damage to nail, initial encounter Concussion without loss of consciousness Qualifiers: Encounter type: initial encounter Qualified Code(s): S06.0X0A - Concussion without loss of consciousness, initial encounter Syncope Qualifiers: Syncope type: unspecified Qualified Code(s): R55 - Syncope and collapse Admit Date/Time: 07/04/25 08:37 Admit Provider: Kolby Cox
--- NOTE | 2025-07-03 22:49 | DI.CT.S_ITS ---
PROCEDURE: CT HEAD/BRAIN WO CON INDICATIONS: fall, occipital lac, syncope TECHNIQUE: Noncontrast 4.5 mm thick angled axial sections acquired from the foramen magnum to the vertex, with coronal and sagittal reformats. For radiation dose reduction, the following was used: automated exposure control, adjustment of mA and/or kV according to patient size. COMPARISON: [facility], CT, CT HEAD/BRAIN WO CON, 07/07/2020, 12:06. FINDINGS: Image quality: Diagnostic. CSF spaces: Basal cisterns are patent. No extra-axial fluid collections. The ventricles are symmetric in size and shape. Brain: No intracranial bleeds or mass effect. There is cerebral volume loss, with resultant ventricular and sulcal prominence. There are periventricular and deep white matter chronic small vessel ischemic changes. There is intracranial internal carotid artery atherosclerosis. Skull and face: Calvarium and visualized facial bones appear intact, without suspicious lesions. Sinuses: Visualized sinuses and mastoids are clear. IMPRESSION: 1. No acute intracranial process. 2. Moderate atrophy and chronic microvascular ischemic changes. Dictated by: Angle Chan M.D. on 07/03/2025 at 23:40 Approved by: Angle Chan M.D. on 07/03/2025 at 23:41
--- NOTE | 2025-07-03 22:51 | EKG_ITS ---
[address] [address] Test Date: 2025-07-04 Pat Name: Maria T Gomez Department: Room: A Gender: Female Rate Examiner: ANALISA : 1945 Requested By: Order Number: [id number] Reading MD: Munir Kauffman MD Measurements Intervals [place] Rate: 62 P: 73 NM: 192 QRS: -61 QRSD: 84 T: 50 QT: 462 QTc: 468 Interpretive Statements Normal sinus rhythm Low voltage QRS Left anterior fascicular block Nonspecific T wave abnormality NO SIGNIFICANT CHANGE FROM PRIOR TRACING Electronically Signed On 07-07-2025 7:45:03 PDT by Munir Kauffman MD
--- NOTE | 2025-07-03 22:51 | DI.RAD.S_ITS ---
PROCEDURE: XR CHEST 1V INDICATIONS: chest pain TECHNIQUE: One view of the chest was acquired. COMPARISON: [facility], CR, XR CHEST 2V, 04/03/2024, 11:53. FINDINGS: Surgical changes and devices: None. Lungs and pleura: Lungs are clear. No pleural effusions or pneumothorax. Mediastinum: Mediastinal contours appear normal. Heart size is normal. Bones and chest wall: No suspicious bony lesions. Overlying soft tissues appear unremarkable. IMPRESSION: No acute pulmonary process. Dictated by: Angle Chan M.D. on 07/03/2025 at 23:37 Approved by: Angle Chan M.D. on 07/03/2025 at 23:38
[2025-07-03 23:00] VITALS: BP 142/66; PULSE 76; O2SAT 96
[2025-07-03 23:13] LABS: Add Manual Diff / Slide Review NO; Hematocrit 40.7 % (36-46); Hemoglobin 13.7 g/dL (12.0-16.0); Lymphocytes Absolute Auto 3600 /uL (1100-4500); Mean Corpuscular HGB Conc 33.5 % (30-36); Mean Corpuscular Hemoglobin 29.4 PG (26-34); Mean Corpuscular Volume 87.7 fL (80-100); Platelet Count 195 X10^3/uL (150-400)
[2025-07-03 23:47] LABS: Troponin I 0.014 ng/mL (0.01-0.034)
[2025-07-03 23:58] LABS: Alanine Aminotransferase 26 IU/L (<35); Albumin 5.0 g/dL (3.5-5.0); Albumin Globulin Ratio 1.7 (1.0-2.8); Blood Urea Nitrogen 15 mg/dL (7-17); Calcium 9.2 mg/dL (8.4-10.2); Carbon Dioxide 20 mmol/L (22-32); Chloride 102 mmol/L (98-107); Creatine Kinase 90 U/L (30-135); Estimated Glomerular Filt Rate > 60 mL/min (>60); Globulin 2.9 g/dL (1.7-4.1); Glucose 107 mg/dL (70-99); Lipase 131 U/L (23-300); Sodium 137 mmol/L (137-145); Total Protein 7.9 g/dL (6.3-8.2)
[2025-07-03 23:59] LABS: Alkaline Phosphatase 77 U/L (38-126); HEMOLYSIS 94 (0-50); Potassium 4.2 mmol/L (3.4-5.1)
[2025-07-04] VITALS (24 sets, daily range): BP systolic 117–171; BP diastolic 52–76; PULSE 60–81; RESP 15–20; TEMP 36.2–36.9; O2SAT 91–100; BMI 24.1
--- NOTE | 2025-07-04 00:11 | PC.NURSE ---
pt states when she moves or sits up she becomes dizzy and nauseated, pt did vomit in CT but states she is not nauseated at this time. pt states after her cataract surgery she was sitting in the [place] when she went out pt states when she was dc she was told her heart stopped and they had to do cpr on her but they did not know what happened
[2025-07-04 01:35] LABS: Troponin I 0.024 ng/mL (0.01-0.034)
[2025-07-04] MEDS: METOCLOPRAMIDE 10 MG/2 ML INJ IV (02:15)
[2025-07-04] MEDS: diphenhydrAMINE 50 MG/ML VIAL 25 MG IV (02:15)
[2025-07-04 02:48] LABS: Troponin I < 0.012 ng/mL (0.01-0.034)
--- NOTE | 2025-07-04 03:04 | DI.RAD.S_ITS ---
PROCEDURE: XR HAND RT MIN 3V INDICATIONS: right thumb/hand pain swelling TECHNIQUE: 3 views of the hand(s) acquired. COMPARISON: None. FINDINGS AND IMPRESSION: Advanced arthritic changes at the base of the thumb. [id number] arthrosis seen elsewhere. No acute displaced fracture or dislocation. Scaphoid is not fully seen without scaphoid view. IV catheter tubing in place. No suspicious soft tissue calcifications. If there is high concern for further derangement, consider MRI evaluation. No significant discrepancy from the preliminary report. Dictated by: Wong Enriquez M.D. on 07/04/2025 at 8:02 Approved by: Wong Enriquez M.D. on 07/04/2025 at 8:03
[2025-07-04] MEDS: SODIUM CHLORIDE 0.9% 1,000 ML 1000 ML IV (04:10)
--- NOTE | 2025-07-04 04:12 | PC.NURSE ---
pt assisted up to BSC and tolerated well no dizziness or nausea pt tolerating ice chips, pt states she did feel slightly weak
--- NOTE | 2025-07-04 05:30 | PC.NURSE ---
pt up to bsc states she is feeling better after the fluids,
--- NOTE | 2025-07-04 06:24 | DI.RAD.S_ITS ---
PROCEDURE: XR WRIST RT MIN 3V INDICATIONS: with scaphoid view, pain hand/wrist from fall TECHNIQUE: 4 views of the wrist were acquired. COMPARISON: None. FINDINGS: Bones: No fractures or dislocations. Osteoarthritic changes are noted throughout right wrist joints most notably involving 1st CMC joint. No suspicious bony lesions. Soft tissues: No suspicious soft tissue calcifications. IMPRESSION: No acute wrist fracture or dislocation. 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 No gross soft tissue abnormalities. Dictated by: Robert Klein M.D. on 07/04/2025 at 8:17 Approved by: Robert Klein M.D. on 07/04/2025 at 8:25
[2025-07-04] MEDS: ONDANSETRON 4 MG ODT SL (08:08)
--- NOTE | 2025-07-04 08:08 | PC.NURSE ---
rec'd report from NOC shift. Pt is up for DC. Pt resting in bed. asking for ice cream, advised that we have some light yogurt for breakfast. Given. Reports she is still dizzy and feels unsteady after hitting her head last night after falling after a few glasses of wine at dinner. Discussed sx of concussion. Assisted to dress in paper scrubs and tolerated well. Nauseated and Dr Rapp made aware. given 4mg PO zofran. R Wrist thumb spica applied. Friend Gwen called for pickup. [phone]
--- NOTE | 2025-07-04 09:04 | PC.NURSE ---
Pt noted to not have EKG on file. Dr Rapp aware. ordered and obtained. Call placed to hospitalist for admission.
--- NOTE | 2025-07-04 09:22 | PC.NURSE ---
Report given to HEMAL Weldon.
--- NOTE | 2025-07-04 10:01 | PC.NURSE ---
Day shift: In room at approx 0945. SHe is A&Ox4. Oriented to room and call light. AGrees to not get OOB without help from staff. Bed alarm is on. Seen by Dr Cox just now (1000).
--- NOTE | 2025-07-04 13:50 | PT.IIE ---
Medical History (Last Reviewed 06/04/21 @ 23:38 by Elisa Villaseñor DO) Acute bacterial bronchitis Allergic rhinitis Endometrial cancer Seizure Physical Therapy Inpatient Evaluation/Re-Eval M1 PT/OT-IP Prior Functional Status Start: 07/04/25 16:36 Freq: NEEDED Status: Active Protocol: Document 07/04/25 13:50 AB (Rec: 07/04/25 17:24 AB [id number]) Medical Review Prior Functional Status Medical History Yes Reviewed Communication able to make needs known Mobility and Gait pt stated that she was modified independent with all mobilities and ambulation without AD but occasionally uses a SPC depending on R knee pain; pt has chronic R knee pain and stated that she just got 3 shots on the pain for pain management a few weeks ago Activities of Daily per OT note: I with ADL,IADL and drives. Living and IADL's Social History Household Members none Living Arrangements Apartment/Condo Number of Floors ( One Floor Floors) Number of Stairs To 3 steps with B rails to enter from the garage Enter/Railing? Home Environment High Toilet,Walk in Shower,Built-In Shower Seat Home Equipment Straight Cane,Hand Held Shower,Grab Bars In Shower M2 PT-IP Current Condition Start: 07/04/25 16:36 Freq: NEEDED Status: Active Protocol: Document 07/04/25 13:50 AB (Rec: 07/04/25 17:24 [id number]) Physical Therapy Current Condition Current Condition Evaluation Date 07/04/25 Treatment Diagnosis syncope; fall, concussion; difficulty in walking Onset Date 07/04/25 M3 PT-IP Subjective Start: 07/04/25 16:36 Freq: NEEDED Status: Active Protocol: Document 07/04/25 13:50 AB (Rec: 07/04/25 17:24 AB [id number]) Subjective Physical Therapy Visit Type Type Initial Evaluation Visit Start Time 13:50 Visit Stop Time 14:35 Number of [employer] Visits 0 Physical Therapy Visit Comments Patient Comments agreeable to do PT Therapy Pain Assessment Pain Present Pain Present Denied Pain M4 PT-IP Mobility and Gait Start: 07/04/25 16:36 Freq: NEEDED Status: Active Protocol: Document 07/04/25 13:50 AB (Rec: 07/04/25 17:24 AB [id number]) PT-Bed Mobility Assessment Supine to Sit Supine to Sit Standby Assistance PT-Transfer Assessment Sit to and From Stand Sit to and from Minimal Assistance,1 Person Assistance,Use of Upper Stand Extremities Equipment Transfer Assistive Gait Belt,Front Wheeled Walker Device Orthotic/Prosthetic No Devices or Brace: Transfers Transfer Destination Chair Transfer Technique ambulated Transfer Ability Level of Assist Minimal Assistance,Moderate Assistance,1 Person Assistance,Use of Upper Extremities Comments Mobility Comments pt in bed and agreeable to do PT. obtained PLOF and home set up. BP monitored. pt also has R thumb spica splint and stated that the doctor told her that she might have a fracture that is not showing up on the x- ray. 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 informed pt to not avoid pushing or putting weight on R hand for safety if the doctor told her that she might have a fracture. pt understood. BP in supine: 124/64. pt completed supine to sit SBA and cues. presents with slow guarded movement and needs time to respond to questions. able to sit on EOB CGA. BP checked: 137/60. pt sat on EOB. no c/o dizziness but still slow to respond to questions and instructions. sit to stand min A and ambulated in room using FWW ~ 15 ft min to mod A and cues. presents with slow guarded movements and unable to ambulate further. pt sat on chair. BP: 125/53. pt agreed to stay up on the chair. positioned pt on the chair. call light and table placed within reach. informed pt regarding SNF rehab but currently, pt does not want to go to SNF. Gait Assessment Gait Gait Assistance Minimum Assistance,Moderate Assistance Required: Distance (Feet) 15 Able to Maintain Yes Weight Bearing Status During Gait Assistive Devices Assistive Device Gait Belt,Front Wheeled Walker Orthotic/Prosthetic No Devices or Brace: Gait Deviations General Gait Pattern Decreased Stride Length,Decreased Feet Clearance,Step- to Gait Factors Limiting Gait Function Factors Limiting Decreased Activity Tolerance,Decreased Strength, Gait Function Difficulty Following Directions,Limited Range of Motion ,Poor Balance,Poor Safety Awareness PT-Balance Assessment Sitting Balance and Reactions Static Sitting Good Balance Ability Dynamic Sitting Fair Balance Ability Standing Balance and Reactions Static Standing Fair Balance Ability Dynamic Standing Poor Balance Ability Device Used FWW M5 PT-IP Objective Assessments Start: 07/04/25 16:36 Freq: NEEDED Status: Active Protocol: Document 07/04/25 13:50 AB (Rec: 07/04/25 17:24 AB [id number]) Orientation Orientation/Cognition Level of Alertness Alert Orientation Name Gross Range of Motion Lower Extremity ROM Assessment Within Functional Limits Strength Lower Extremity Strength Assessment Within Functional Limits Coordination Assessment Gross Coordination Gross Coordination WNL Sensation Assessment Sensation Gross Sensation WNL Muscle Tone Muscle Tone WNL Yes M6 PT-IP Treatment Start: 07/04/25 16:36 Freq: NEEDED Status: Active Protocol: Document 07/04/25 13:50 AB (Rec: 07/04/25 17:24 AB [id number]) Physical Therapy Treatment Education Education Provided Safety M7 PT-IP Assessment and Plan Start: 07/04/25 16:36 Freq: NEEDED Status: Active Protocol: Document 07/04/25 13:50 AB (Rec: 07/04/25 17:24 AB [id number]) PT Summary Assessment and Plan Potential Rehabilitation Fair Potential Status of Condition Evolving at Evaluation Summary Impairments Pain,ROM,Strength,Balance,Coordination,Sensation, Cognition,Bed Mobility,Transfers,Gait,Activity Tolerance Assessment Summary pt is an 80 y/o F who had a syncopal episode and had a fall. pt sustain a concussion. No fractures with imaging results but currently has R thumb spica splint on. pt requiring min A with sit to stand and min to mod A with transfers and ambulation using FWW. pt unable to tolerate much activity and presents with unsteady gait. pt lives alone and will require 24/7 assist at this time and will require SNF rehab. informed pt regarding SNF recommendation but pt refusing. Goals Bed Mobility Goal Independent Transfer Goal Standby Assistance,Front Wheeled Walker Gait Goal Standby Assistance,Front Wheel Walker Gait Distance 50 Other Goals improve transfers, ambulation using FWW/LRAD 150 ft mod I up/down 3 steps B rails mod I Days to Meet Goals 10 Frequency of Treatment Frequency Of Once a Day Treatment Treatment Plan Physical Therapy Bed Mobility Training,Transfer Training,Gait Training, Treatment Plan Therapeutic Exercise,Balance Retraining,Discharge Planning,Hot or Cold Pack,Neuromuscular Re-ed, Coordination Retraining,Manual Therapy Precautions Other Precautions falls; BP Recommendations To Nursing Amount of Assist 1 Person Assist Needed Discharge Recommendations PT Discharge SNF Rehab Recommendations Equipment Needed for FWW Home Before Discharge Transportation Needs Private Vehicle,Wheelchair/Cabulance at Discharge - PT assist 1
--- NOTE | 2025-07-04 14:46 | PM.HP.1 ---
History of Present Illness History of Present Illness Date Patient Seen: 07/04/25 Time Patient Seen: 10:00 Chief complaint: Fall Narrative: Generally healthy patient lives alone had bad fall out last night with abrasion to head and R hand FOOSH pain - seen in ED with negative scans but unable to get up without nausea/vomiting. Admit obsv for symptom control and concussion monitoring. She feels basically ok laying down with lights out but gets pukey if she tries to eat or stand. [facility] Medical History Acute bacterial bronchitis Allergic rhinitis Endometrial cancer Seizure Social History household members: none Smoking Status: Former smoker alcohol intake: current Meds Home Medications and Allergies Home Medications ?Medication ?Instructions ?Recorded ?Confirmed ?Type cetirizine 10 mg tablet (Zyrtec) 10 mg PO DAILY 06/02/20 07/07/20 History sertraline 25 mg tablet 75 mg PO DAILY 06/02/20 07/07/20 History Allergies Allergy/AdvReac Type Severity Reaction Status Date / Time codeine Allergy Verified 06/04/21 16:33 Review of Systems Review of Systems Narrative: all systems reviewed and negative except as otherwise documented in HPI Exam Vital Signs (past 8 hours): - 07/04/25 08:14 07/04/25 08:15 07/04/25 08:15 Temperature Pulse Rate 67 67 Respiratory Rate Blood Pressure 153/71 H Pulse Oximetry 97 97 Oxygen Flow Rate 07/04/25 08:30 07/04/25 08:30 07/04/25 09:00 Temperature Pulse Rate 66 Respiratory Rate Blood Pressure 144/61 H 128/61 Pulse Oximetry Oxygen Flow Rate 07/04/25 09:00 07/04/25 09:45 07/04/25 09:53 Temperature 98.5 F 98.5 F Pulse Rate 66 70 70 Respiratory Rate 20 20 Blood Pressure 124/59 L 124/59 L Pulse Oximetry 91 98 98 Oxygen Flow Rate 0 07/04/25 10:30 07/04/25 14:33 Temperature 98.2 F 97.8 F Pulse Rate 60 69 Respiratory Rate 16 15 Blood Pressure 117/55 L 124/64 Pulse Oximetry 96 98 Oxygen Flow Rate 0 0 Oxygen Delivery Method Room Air Oxygen Flow Rate 0 Narrative Exam Narrative: resting comfortably in hospital bed HENMT Other: abrasion on back of head, extraocular movements intact Resp Other: clear to auscultation bilaterally Cardio Other: regular rate and rhythm, s1/s2, no pedal edema GI Other: soft nontender active bowel sounds Neuro Other: alert awake fully oriented feels headachey Extrem Other: R hand in wrist thumb brace, distal nv intact Objective Labs 07/03/25 21:12 07/03/25 21:12 Labs: Laboratory Results - last 24 hr 07/03/25 07/04/25 07/04/25 21:12 00:58 02:18 WBC 8.4 RBC 4.65 Hgb 13.7 Hct 40.7 MCV 87.7 MCH 29.4 MCHC 33.5 RDW 14.0 Plt Count 195 Neut % (Auto) 48.1 L Lymph % (Auto) 42.5 H [place] % (Auto) 5.4 Eos % (Auto) 1.6 L Baso % (Auto) 2.4 H Neut # (Auto) 4000 Lymph # (Auto) 3600 [place] # (Auto) 500 Eos # (Auto) 100 Baso # (Auto) 200 H Sodium 137 Potassium 4.2 Chloride 102 Carbon Dioxide 20 L BUN 15 Creatinine 0.79 Estimated GFR > 60 BUN/Creatinine Ratio 19.0 Glucose 107 H Calcium 9.2 Total Bilirubin 0.6 AST 38 H ALT 26 Alkaline Phosphatase 77 Total Creatine Kinase 90 Troponin I 0.014 0.024 < 0.012 Total Protein 7.9 Albumin 5.0 Globulin 2.9 Albumin/Globulin Ratio 1.7 Lipase 131 Assessment & Plan Assessment & Plan narrative: #fall #concussion #head abrasion monitor obsv, work with PT/OT, keep light off minimal stimuli SLUMS score 15 per nursing # R wrist pain from FOOSH injury - keep brace on february rescan as outpt. #MDD stable continue zoloft 100mg #hx of asthma stable no wheezing today monitor Dispo: admit obsv and monitor PCP: Kenny MDM: Daughter Code: spare hand-Based Coding :: [TOTAL MINUTES] spent with patient and on the chart (including review of chart, obtaining history, exam, reviewing outside data, placing orders, documenting exam and treatment plan, and counseling patient) on [DATE]. Quality VTE Deep Vein Thrombosis/Pulmonary Embolism Present on Admission: No
--- NOTE | 2025-07-04 15:47 | OT.IP.EVAL ---
Past Medical History (Last Reviewed 06/04/21 @ 23:38 by Elisa Villaseñor DO) Acute bacterial bronchitis Allergic rhinitis Endometrial cancer Seizure Occupational Therapy Inpatient Evaluation/Re-Eval M1 PT/OT-IP Prior Functional Status Start: 07/04/25 15:22 Freq: NEEDED Status: Active Protocol: Document 07/04/25 15:24 [facility] (Rec: 07/04/25 15:47 [facility] Desktop) Medical Review Prior Functional Status Communication I Mobility and Gait I but has right knee pain. Activities of Daily I with ADL,IADL and drives. Living and IADL's Social History Household Members none Living Arrangements House Number of Floors ( One Floor Floors) Number of Stairs To 3 steps with left rail to enter to the front porch. Enter/Railing? Home Environment Standard Height Toilet,Walk in Shower Home Equipment Hand Held Shower,Grab Bars In Shower M2 OT-IP Current Condition Start: 07/04/25 15:22 Freq: Status: Active Protocol: Document 07/04/25 15:24 [facility] (Rec: 07/04/25 15:47 [facility] Desktop) Occupational Therapy Current Condition Current Condition Evaluation Date 07/04/25 Treatment Diagnosis FAll and syncope, concussion Diagnosis Onset Date 07/04/25 M3 OT- IP Subjective and Pain Start: 07/04/25 15:22 Freq: Status: Active Protocol: Document 07/04/25 15:24 [facility] (Rec: 07/04/25 15:47 [facility] Desktop) OT- Subjective Occupational Therapy Visit Type Type Initial Evaluation Visit Start Time 14:40 Visit Stop Time 15:16 Occupational Therapy Visit Comments Patient Comments Pt agreed to OT eval. Patient/Caregiver TO go home. Goals OT Pain Assessment Pain When Pain Assessed At Rest Pain Present Pain Present Denied Pain M4 OT- IP ADL's Start: 07/04/25 15:22 Freq: Status: Active Protocol: Document 07/04/25 15:24 [facility] (Rec: 07/04/25 15:47 [facility] Desktop) OT ZOI-Aonx-Owlrxne General Evaluation Self-Feeding Ability Independent OT ADL-Grooming Comments OT Grooming Comments Pt able to wash her hands while standing at the sink with FWW. OT ADL-Oral Care Comments Oral Care Comments Not performed. OT ADL-Dressing General Eval Lower Body Dressing Standby Assistance Ability Comments OT Dressing Comments Pt able to shaheen breif over her feet and up over her hips with SBA for safety. OT ADL-Toileting General Evaluation Toileting Ability Standby Assistance OT ADL-Bathing Comments OT Bathing Comments Pt would benefit from at least supervision at home. M5 OT- IP IADL's Start: 07/04/25 15:22 Freq: Status: Active Protocol: Document 07/04/25 15:24 [facility] (Rec: 07/04/25 15:47 [facility] Desktop) OT-Instrumental Activities of Daily Living Home Safety Awareness Awareness of Need Decreased Awareness for Assistance at Home Ability to Problem Able to Problem Solve Solve Emergency Situations Medication Management Medication Pt states does her own but would benefit from at least Management Comments supervision. Money Management Money Management Pt will benefit from assist. Comments Meal Preparation Meal Preparation Pt will need assist. 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 Comments Driving Driving Concerns Identified Regarding Safety M6 OT- IP Functional Cognition Start: 07/04/25 15:22 Freq: Status: Active Protocol: Document 07/04/25 15:24 [facility] (Rec: 07/04/25 15:47 [facility] Desktop) Cognitive Factors Limiting Selfcare Function Cognitive Ability Level of Alertness Alert Patient Orientation Name,Age,Birthday,Month,Date,Year,Day of Week,Place, Situation Attention Span Capable of Focused Attention,Capable of Sustained Ability Attention Ability to Follow Able to Follow One Step Commands with Increased Time, Commands Able to Follow One Step Commands with Repetition Memory Description Short Term Impaired,Working Impaired Problem Solving Unable to Identify Errors,Needs Assist to Identify Ability Solutions Executive Function Unable to Switch Focus,Unable to Remember Details Ability Cognitive Tests SLUMS Pt scored 13/30 on the SLUMS which implies dementia, however per pt has not slept well. In addition pt recently hit the back of her head and has a concussion which may be also affecting her mentation at this time. Pt able to recall 11 animals in one minute, able to recall 3/5 words after time passed, not able to state 4 digit number backwards, not able to draw the numbers on the clock correctly and numbers on the right hand side of the clock, and not able to answer any of the 4 questions right after paragraph read. Cognitive Comments Cognitive Assessment Pt scored 312seconds on [place] Making Part B and needing Comments MAXvc to complete the task. Pt's score implies severe impairments for speed of processing, mental flexibility , visual attention, task switching, and executive functioning. Pt well aware of suggestion that pt should not drive at this time. At this time if pt going home will benefit from 15/05 available assist. OT- Vision and Hearing OT- Vision Assessment Visual Acuity Glasses All The Time Visual Attentiveness WFL Occular Pursuits WFL Visual Convergence WFL Visual [place] WFL M7 OT- IP Mobility and Balance Start: 07/04/25 15:22 Freq: Status: Active Protocol: Document 07/04/25 15:24 [facility] (Rec: 07/04/25 15:47 [facility] Desktop) OT- Bed Mobility Assessment Sit to Supine Sit to Supine Assist Standby Assistance OT-Transfer Assessment Sit to and From Stand Sit to and from Contact Guard Assistance Stand Transfers Transfer Ability Contact Guard Assistance,Minimal Assistance Technique Transfer Destination Bed,Chair,Toilet Transfer Technique Stand Step Pivot Devices Transfer Assistive Gait Belt,Front Wheeled Walker Devices Comments Mobility Comments Pt a little unsteady on her feet and needing use of the FWW for balance. Pt transfer from recliner to bed without a device EVANGELINA. OT- Balance Assessment Sitting Balance and Reactions Static Sitting Normal Balance Ability Dynamic Sitting Good Balance Ability Standing Balance and Reactions Static Standing Good Balance Ability Dynamic Standing Fair Balance Ability M8 OT- IP Objective Assessments Start: 07/04/25 15:22 Freq: Status: Active Protocol: Document 07/04/25 15:24 [facility] (Rec: 07/04/25 15:47 [facility] Desktop) OT Gross Range of Motion Upper Extremity Range of Motion Assessment Right Impaired ROM Impairments Right hand due to swelling mild decrease ROM OT Strength Comments Strength Comments Anatomical Snuff by Tenderness and Scaphoid Tubercle Tenderness assessments negative. OT- Coordination Assessment Upper Extremity Finger to Nose Test Within Functional Limits OT Sensation Assessment Edema Edema Present Edema Comments Right hand especially on thumb and wrist. Pt has thumb spica splint for comfort and not complaining of any pain with her right thumb at this time. M9 OT- IP Assessment and Plan Start: 07/04/25 15:22 Freq: Status: Active Protocol: Document 07/04/25 15:24 [facility] (Rec: 07/04/25 15:47 [facility] Desktop) OT Summary Assessment and Plan Potential Rehabilitation Good Potential Analytic Complexity Moderate at Evaluation Summary OT Impairments Balance,Functional Cognition,Dressing,Toileting,Bathing ,Toilet Transfers,Shower Transfers,Activity Tolerance Progress Towards Progressing Toward Goals,Slow Progress due to Medical Goals Issues Assessment Summary Pt here due to syncope/fall /concussion. Pt unsteady on her feet and will benefit from FWW/4ww. Pt not thinking well, having difficulty with her STM and problem solving and scored 13/30 on the SLUMS. Pt is insistent of going home, however if gong home best for pt to have 24/7 available assist at this time and home health or have short skilled rehab stay as pt not at her baseline at this time. Goals Self-Feeding Goal Independent Grooming Goal Independent Dressing Goal Independent Toileting Goal Independent Bathing Goal Independent Toilet Transfer Goal Independent Shower Transfer Goal Independent Days to Meet Goals 7 Frequency of Treatment Other frequency 5x/week Treatment Plan OT Treatment Plan ADL Training,Functional Cognition Training,Functional Mobility,Patient/Family Education,Discharge Planning Other Treatment Shower, reassess SLUMS/[place] MAking B Recommendations and Next Treatment Focus Discharge Recommendations OT Discharge Home with 24/7 Assist Available,Home Health,Home vs SNF Recommendations Transportation Needs Private Vehicle,Wheelchair/Cabulance at Discharge
[2025-07-04] MEDS: SERTRALINE 50 MG TABLET 100 MG PO (20:04)
[2025-07-05 01:02] VITALS: BP 125/69; PULSE 63; RESP 16; TEMP 35.9; O2SAT 92
[2025-07-05 04:27] VITALS: BP 119/61; PULSE 64; RESP 16; TEMP 35.8; O2SAT 94
[2025-07-05] MEDS: LORATADINE 10 MG TABLET PO (08:32)
[2025-07-05] MEDS: SODIUM CHLORIDE 0.9% FLUSH 10 ML IV (08:32)
--- NOTE | 2025-07-05 08:50 | PM.DS.IH.1 ---
History of Present Illness History of Present Illness Chief complaint: Fall Discharge Providers Provider Date of admission: 07/04/25 08:37 Discharge Date: 07/05/25 Primary care physician: Kolby Cox MD Consults: 07/04/25 09:33 Consult to Occupational Therapy Evaluate & Treat Comment: Physician Instructions: Evaluate and treat Consult to Physical Therapy Evaluate & Treat Comment: Physician Instructions: Evaluate and Treat Discharge provider: Grupo Tobias MD Summary Hospital Course Discharge Diagnosis: Concussion Fall Depression Asthma Hospital Course: 80-year-old female who was having dinner in the [employer] was walking across the floor and then woke up on the ground head was struck in the back. She does not recall the event no precipitating factors that she is aware of. No seizing shaker shaking loss of stool or bowel bladder function. She hit the back of her head and sustained a laceration. She was brought to the emergency department appropriate testing was done and she was admitted to the hospital for observation she had problems with concussion symptoms with severe debilitating nausea. Antiemetics were not effective. As she lived independently she was admitted to the hospital for further evaluation. During the hospital stay patient was placed on telemetry monitoring. She is able to ambulate she was tolerating a diet and the nausea improved. At the time of discharge she had a mild headache and was given ibuprofen. She is mentating well. There is no explainable cause for her fall. That will be continued to be worked up by her primary physician Dr. Cox Exam Vital Signs (past 8 hours): - 07/05/25 01:02 07/05/25 04:27 Temperature 96.6 F L 96.4 F L Pulse Rate 63 64 Respiratory Rate 16 16 Blood Pressure 125/69 119/61 Pulse Oximetry 92 94 Oxygen Delivery Method Room Air Oxygen Flow Rate 0 Narrative Exam Narrative: Gen.: Alert and oriented x3 no apparent distress. HEENT: NCAT PERRLA tympanic membranes are clear nares are patent oral mucosa is moist no tonsillar hypertrophy neck is supple without lymphadenopathy no thyroid enlargement. Cardio: S1-S2 regular rate and rhythm no murmurs appreciated. Respiratory: Lungs are clear to auscultation no wheezes or crackles normal respiratory effort. Abdomen: Soft nontender no rebound or guarding no liver spleen enlargement no appreciable hernias Extremities: Abrasions contusions Neurologic: Grossly intact. Objective Labs 07/03/25 21:12 07/03/25 21:12 [facility] Medical History Acute bacterial bronchitis Allergic rhinitis Endometrial cancer Seizure Social History household members: none Smoking Status: Former smoker alcohol intake: current Discharge Plan Discharge Plan Patient Disposition: Home Provider Discharge Comment: Discharge home follow up with Dr. Parry 1 week Discharge orders & Medications Prescriptions: Continued cetirizine [Zyrtec] 10 mg Tablet 10 mg PO DAILY sertraline 25 mg tablet 100 mg PO .HS Follow up/Referrals: Kolby Cox MD [Primary Care Provider, Family Practice] Visit Report/Discharge Packet Instructions: DI for Concussion, Concussion Stand Alone Forms: Patient Portal/API, Stroke Signs & Symptoms Discharge Data Primary Care Provider: Kolby Cox Attending Provider: Kolby Cox Admit Date/Time: 07/04/25 08:37 Quality VTE Deep Vein Thrombosis/Pulmonary Embolism Present on Admission: No IH PROFEE Charge Codes Discharge inpatient/observation: [id number]
[2025-07-05 09:00] VITALS: BP 152/64; PULSE 66; RESP 16; TEMP 36.4; O2SAT 91
[2025-07-05] MEDS: IBUPROFEN 600 MG TABLET PO (09:31)
--- NOTE | 2025-07-05 10:45 | PT.IPTN ---
Physical Therapy Treatment Note M2 PT-IP Current Condition Start: 07/04/25 16:36 Freq: NEEDED Status: Active Protocol: Document 07/04/25 13:50 AB (Rec: 07/04/25 17:24 AB [id number]) Physical Therapy Current Condition Current Condition Evaluation Date 07/04/25 Treatment Diagnosis syncope; fall, concussion; difficulty in walking Onset Date 07/04/25 M3 PT-IP Subjective Start: 07/04/25 16:36 Freq: NEEDED Status: Active Protocol: Document 07/05/25 10:45 AB (Rec: 07/05/25 13:11 AB Desktop) Subjective Physical Therapy Visit Type Type Treatment Note Visit Start Time 10:45 Visit Stop Time 11:20 Number of OPTICIAN APPRENTICE Visits 0 Physical Therapy Visit Comments Patient Comments agreeable to do PT M4 PT-IP Mobility and Gait Start: 07/04/25 16:36 Freq: NEEDED Status: Active Protocol: Document 07/05/25 10:45 AB (Rec: 07/05/25 13:11 AB Desktop) PT-Bed Mobility Assessment Supine to Sit Supine to Sit Standby Assistance PT-Transfer Assessment Sit to and From Stand Sit to and from Standby Assistance Stand Equipment Transfer Assistive Gait Belt,Straight Cane Device Orthotic/Prosthetic No Devices or Brace: Transfers Transfer Destination Toilet Transfer Technique ambulated Transfer Ability Level of Assist Standby Assistance,Contact Guard Assistance,1 Person Assistance,Use of Upper Extremities Comments Mobility Comments pt in bed and agreeable to do PT. supine to sit SBA. sit to stand SBA and ambulated using FWW ~ 100 ft SBA. completed up/down steps using B rails SBA. pt ambulated back to her room and sat on EOB. Assessed ambulation using SPC. pt ambulated ~ 40 ft in room using SPC SBA to CGA. pt requested to use the toilet and ambulated to the toilet using SPC SBA to CGA . antalgic gait and pt tends to reach for wall/bed for support. completed toileting needs SBA. pt ambulated to the sink and was able to maintain standing SBA while completing handwashing. pt ambulated back to EOB. informed pt regarding use of FWW for safety and pt agreed. pt stated that she will order online. informed pt that she will need one if she goes home today but pt refused to get one from the hospital and wants to order online. informed pt to borrow one from neighbors /friends. pt understood. sit to supine SBA. positioned pt in bed. call light and table placed within reach. Gait Assessment Gait Gait Assistance Standby Assistance,Contact Guard Assist Required: Distance (Feet) 100 Able to Maintain Yes Weight Bearing Status During Gait Assistive Devices Assistive Device Gait Belt,Straight Cane,Front Wheeled Walker Orthotic/Prosthetic No Devices or Brace: Gait Deviations General Gait Pattern Antalgic,Decreased Stride Length,Decreased Feet Clearance Factors Limiting Gait Function Factors Limiting Decreased Activity Tolerance,Decreased Strength,Limited Gait Function Range of Motion,Pain,Poor Balance,Poor Safety Awareness Stair Climbing Assessment Evaluation Level of Assist On Standby Assistance Stairs Devices Stair Climbing Left Railing,Right Railing Assistive Devices Technique/Endurance Stair Climbing Ascend and Descend Direction Stair Climbing Step to Step Technique Number of Steps 3 Climbed Stair Climbing Set # 1 Repetitions (reps) M5 PT-IP Objective Assessments Start: 07/04/25 16:36 Freq: NEEDED Status: Active Protocol: Document 07/04/25 13:50 AB (Rec: 07/04/25 17:24 AB [id number]) Orientation Orientation/Cognition Level of Alertness Alert Orientation Name Gross Range of Motion Lower Extremity ROM Assessment Within Functional Limits Strength Lower Extremity Strength Assessment Within Functional Limits Coordination Assessment Gross Coordination Gross Coordination WNL Sensation Assessment Sensation Gross Sensation WNL Muscle Tone Muscle Tone WNL Yes M6 PT-IP Treatment Start: 07/04/25 16:36 Freq: NEEDED Status: Active Protocol: Document 07/05/25 10:45 AB (Rec: 07/05/25 13:11 AB Desktop) Physical Therapy Treatment Education Education Provided Safety M7 PT-IP Assessment and Plan Start: 07/04/25 16:36 Freq: NEEDED Status: Active Protocol: Document 07/05/25 10:45 AB (Rec: 07/05/25 13:11 AB Desktop) PT Summary Assessment and Plan Potential Rehabilitation Fair Potential Summary Impairments Pain,ROM,Strength,Balance,Coordination,Cognition,Bed Mobility,Transfers,Gait,Activity Tolerance Progress Towards Progressing Toward Goals Goals Assessment Summary pt able to tolerate more activities today and requires SBA to CGA with mobilities. Recommending use of FWW at this time. pt also will benefit from HHPT. Goals Bed Mobility Goal Independent Transfer Goal Standby Assistance,Front Wheeled Walker Gait Goal Standby Assistance,Front Wheel Walker Gait Distance 50 Other Goals improve transfers, ambulation using FWW/LRAD 150 ft mod I up/down 3 steps B rails mod I Days to Meet Goals 10 Frequency of Treatment Frequency Of Once a Day Treatment Treatment Plan Physical Therapy Bed Mobility Training,Transfer Training,Gait Training, Treatment Plan Therapeutic Exercise,Balance Retraining,Discharge Planning,Hot or Cold Pack,Neuromuscular Re-ed, Coordination Retraining,Manual Therapy Precautions Other Precautions falls Recommendations To Nursing Amount of Assist 1 Person Assist Needed Discharge Recommendations PT Discharge Home with Assistance,Home Health Recommendations Equipment Needed for FWW Home Before Discharge Transportation Needs Private Vehicle,Wheelchair/Cabulance at Discharge - PT assist 1
--- NOTE | 2025-07-05 15:17 | CM.DANOTE ---
Patient is an 80 yo female who was admitted OBS Status on 07/04/25 for GLF with concussion. Pt has MCR and for LIFE and her PCP is Dr. Kolby Cox at [facility]. EMR was reviewed. Per MD, pt's n/v has resolved and able to work more with PT today and medically stable to d/c home with HH and outpt f/u. Per PT, recommending home with HH and FWW. SW met bedside with pt in room and she is up standing by sink getting ready to discharge today and confirms she is and now lives alone in [facility] with supportive friends and neighbors and pt quite active and independent at baseline and drives and does not use DME for ambulation. Pt confirms that with her concussion she is still foggy brained and unsteady and denies any hx of HH for herself but her had HH and she is agreeable to HH PT/OT at this time. Provided HH Choice list and no preference. Pt also inquired about private CG for assist with cleaning and chores until she is feeling better and provided [facility] CG list and Senior Resource Guidebook with CG agencies. Pt very appreciative. [facility] referral made based on Vendor Calendar and F2F and orders sent along with dc summary. Pt's friend Margarita coming to provide transport home today and bringing FWW for pt to use at d/c. RN providing discharge instructions now. NATALIE Eddy Discharge Planning/Care Management CM Discharge Assessment Start: 07/04/25 08:40 Freq: Status: Discharge Protocol: Document 07/05/25 15:15 BF (Rec: 07/05/25 15:17 BF [id number]) Discharge Planning Assessment Assigned Discharge NATALIE Young Door Serviceman Provider Dr. Kolby Cox Insurance Medicare Advance Directives? Yes Advance Directives No on File History Provided By Patient,Medical Record Has Patient been No admitted in last 30 days? Prior Living House Arrangements Household Members none Type of Drives own vehicle transporation used prior to admit Independent with ADL Yes 's Is patient alert and Yes oriented? Caregiver for No Another DME Already Rented / Cane Owned Patient/Family Home with Home Health Preference Barriers to No Discharge Discharge Plan Home with Home Health Community Services Physical Therapy,Occupational Therapy Transportation Friend Margarita coming to provide transport home today Arrangement Referrals Initiated Home Health If patient plan is Yes home with home health: Has signed face to face form been completed? Medicare Choice List Yes Provided Medicare choice list patient reviewed on electronic tablet with SNF/HH Preference [facility] based on vendor calendar Whiteboard Updated Yes in Patient Room with name and ext. # of Art Preparator Review Status In Process Please Provide Date 07/05/25 Initial DC Assessment Was Performed Next Review Type Continued Stay Review
== END 2025-07-05 14:45 | disposition home or self-care (01) ==
LOC: ED 07-04 07:36 → AC 07-04 08:40
PROVIDERS: Admitting Provider Family Medicine; Emergency Provider Emergency Medicine; PCP Family Medicine; Referring Provider Emergency Medicine; Visit Provider Family Medicine
DX: S01.01XA Laceration without foreign body of scalp, initial encounter (principal); R55 Syncope and collapse; R11.0 Nausea; S60.011A Contusion of right thumb without damage to nail, initial encounter; W18.30XA Fall on same level, unspecified, initial encounter; Y92.89 Other specified places as the place of occurrence of the external cause; Z87.891 Personal history of nicotine dependence
CPT/HCPCS: 36415; 70450; 71045; 73110; 73130; 80053; 82550; 82962; 83690; 84484; 85025; 93005; 96361; 96374; 96375; 97116; 97129; 97162; 97166; 97530; 99284; G0378; J1200; J2405; J2765